=== PATIENT | male | born 1940 | race American Indian/Alaskan Native ===

== ENCOUNTER 2016-09-02 15:02 | Emergency (ER) | payer MEDICARE ==
[2016-09-02 15:35] VITALS: BP 119/74
[2016-09-02 15:48] LABS: Hematocrit 49.8 % (35.5-45.6); Hemoglobin 17.1 gm/dl (11.8-15.2); Mean Corpuscular HGB Conc 34 % (32-34); Mean Corpuscular Hemoglobin 31 pg (28-32); Mean Corpuscular Volume 90 fl (84-94); Platelet Count 218 K/mm3 (140-440); Red Blood Count 5.53 M/mm3 (3.65-5.03); Red Cell Distribution Width 14.4 % (13.2-15.2); White Blood Count 3.8 K/mm3 (4.5-11.0)
[2016-09-02 15:57] LABS: INR 1.54 (0.87-1.13)
[2016-09-02 16:09] LABS: Anion Gap 20 mmol/L; BUN/Creatinine Ratio 21.05; Blood Urea Nitrogen 40 mg/dL (9-20); Calcium 9.1 mg/dL (8.4-10.2); Carbon Dioxide 24 mmol/L (22-30); Chloride 94.1 mmol/L (98-107); Glucose 123 mg/dL (75-100); Potassium 3.7 mmol/L (3.6-5.0); Sodium 134 mmol/L (137-145)
--- NOTE | 2016-09-02 16:25 | Cat Scan Report ---
FINAL REPORT EXAM: CT HEAD/BRAIN WO CON HISTORY: neuro deficits \T\lt; 6hrs or sx present upon awakening TECHNIQUE: CT head without contrast PRIORS: None. FINDINGS: No acute intra-axial or extra-axial hemorrhage is identified. There is no evidence of midline shift or mass effect. The ventricles and sulci are within normal limits. Gunderson-white matter differentiation is intact. No acute parenchymal abnormalities seen. Bony calvarium is grossly intact. Visualized portions of the mastoids and paranasal sinuses are unremarkable. IMPRESSION: Negative CT head
[2016-09-02 19:35] LABS: Blastocytes % (Manual) 0 %
[2016-09-02 19:38] LABS: Anisocytosis 1+; Ovalocytes 1+
[2016-09-02 19:39] LABS: Diff Status Complete; Large Platelets 1+; Platelet Estimate Cons
--- NOTE | 2016-09-06 15:59 | ED Elopement Review ---
ED Pt Elopement review - Results review Lab results: Laboratory Tests 09/02/16 09/02/16 09/02/16 15:38 15:38 15:38 WBC 3.8 L RBC 5.53 H Hgb 17.1 H Hct 49.8 H MCV 90 MCH 31 MCHC 34 RDW 14.4 Plt Count 218 [place] % (Auto) Cereal Chemist Add Manual Diff Complete Total Counted 100 Seg Neuts % (Manual) 47.0 Band Neutrophils % 0 Lymphocytes % (Manual) 31.0 Reactive Lymphs % (Man) 0 Monocytes % (Manual) 20.0 H Eosinophils % (Manual) 1.0 Basophils % (Manual) 1.0 Metamyelocytes % 0 Myelocytes % 0 Promyelocytes % 0 Blast Cells % 0 Nucleated RBC % Not Reportable Seg Neutrophils # Man 1.8 Band Neutrophils # 0.0 Lymphocytes # (Manual) 1.2 Abs React Lymphs (Man) 0.0 Monocytes # (Manual) 0.8 Eosinophils # (Manual) 0.0 Basophils # (Manual) 0.0 Metamyelocytes # 0.0 Myelocytes # 0.0 Promyelocytes # 0.0 Blast Cells # 0.0 WBC Morphology Not Reportable Hypersegmented Neuts Not Reportable Hyposegmented Neuts Not Reportable Hypogranular Neuts Not Reportable Smudge Cells Not Reportable Toxic Granulation Not Reportable Toxic Vacuolation Not Reportable Dohle Bodies Not Reportable Pelger-Huet Anomaly Not Reportable Marielle Rods Not Reportable Platelet Estimate Cons Clumped Platelets Not Reportable Plt Clumps, EDTA Not Reportable Large Platelets 1+ Giant Platelets Not Reportable Platelet Satelliting Not Reportable Plt Morphology Comment Not Reportable RBC Morphology Not Reportable Dimorphic RBCs Not Reportable Polychromasia Not Reportable Hypochromasia Not Reportable Poikilocytosis Not Reportable Anisocytosis 1+ Microcytosis Not Reportable Macrocytosis Not Reportable Spherocytes Not Reportable Pappenheimer Bodies Not Reportable Sickle Cells Not Reportable Target Cells Not Reportable Tear Drop Cells Not Reportable Ovalocytes 1+ Helmet Cells Not Reportable Riddle-[place] Bodies Not Reportable Mobile Rings Not Reportable Duglas Cells Not Reportable Bite Cells Not Reportable Crenated Cell Not Reportable Elliptocytes Not Reportable Acanthocytes (Spur) Not Reportable Rouleaux Not Reportable Hemoglobin C Crystals Not Reportable Schistocytes Not Reportable Malaria parasites Not Reportable Timbo Bodies Not Reportable Hem Pathologist Commnt No PT 18.5 H INR 1.54 H APTT 36.0 Thrombin Time Sodium 134 L Potassium 3.7 Chloride 94.1 L Carbon Dioxide 24 Anion Gap 20 BUN 40 H Creatinine 1.9 H Estimated GFR 42 BUN/Creatinine Ratio 21.05 Glucose 123 H POC Glucose Calcium 9.1 Troponin T < 0.010 09/02/16 09/02/16 15:38 15:41 WBC RBC Hgb Hct MCV MCH MCHC RDW Plt Count [place] % (Auto) Add Manual Diff Total Counted Seg Neuts % (Manual) Band Neutrophils % Lymphocytes % (Manual) Reactive Lymphs % (Man) Monocytes % (Manual) Eosinophils % (Manual) Basophils % (Manual) Metamyelocytes % Myelocytes % Promyelocytes % Blast Cells % Nucleated RBC % Seg Neutrophils # Man Band Neutrophils # Lymphocytes # (Manual) Abs React Lymphs (Man) Monocytes # (Manual) Eosinophils # (Manual) Basophils # (Manual) Metamyelocytes # Myelocytes # Promyelocytes # Blast Cells # WBC Morphology Hypersegmented Neuts Hyposegmented Neuts Hypogranular Neuts Smudge Cells Toxic Granulation Toxic Vacuolation Dohle Bodies Pelger-Huet Anomaly Marielle Rods Platelet Estimate Clumped Platelets Plt Clumps, EDTA Large Platelets Giant Platelets Platelet Satelliting Plt Morphology Comment RBC Morphology Dimorphic RBCs Polychromasia Hypochromasia Poikilocytosis Anisocytosis Microcytosis Macrocytosis Spherocytes Pappenheimer Bodies Sickle Cells Target Cells Tear Drop Cells Ovalocytes Helmet Cells Riddle-[place] Bodies Mobile Rings Duglas Cells Bite Cells Crenated Cell Elliptocytes Acanthocytes (Spur) Rouleaux Hemoglobin C Crystals Schistocytes Malaria parasites Timbo Bodies Hem Pathologist Commnt PT INR APTT Thrombin Time 16.9 Sodium Potassium Chloride Carbon Dioxide Anion Gap BUN Creatinine Estimated GFR BUN/Creatinine Ratio Glucose POC Glucose 122 H Calcium Troponin T - Call Back decision Pt Call Back Decision: No action required
== END 2016-09-02 15:38 | disposition left against medical advice (07) ==
LOC: ED 15:02
DX: R51 Headache (principal); R03.1 Nonspecific low blood-pressure reading; I10 Essential (primary) hypertension; I50.9 Heart failure, unspecified; Z86.718 Personal history of other venous thrombosis and embolism; Z53.21 Procedure and treatment not carried out due to patient leaving prior to being seen by health care provider
CPT/HCPCS: 36415; 70450; 80048; 82962; 84484; 85007; 85025; 85610; 85670; 85730; 93005; 93010

== ENCOUNTER 2016-10-12 14:49 | Inpatient (IN) | payer MEDICARE ==
--- NOTE | 2016-10-12 15:41 | Emergency Department Report ---
ED Altered Mental Status HPI - General Chief Complaint: Altered Mental Status Stated Complaint: LEG PAIN Time Seen by Provider: 10/12/16 15:37 Source: patient, family, RN notes reviewed Mode of arrival: Ambulatory Limitations: Altered Mental Status, Physical Limitation - History of Present Illness Initial Comments: 76-year-old male presents to the emergency department via EMS for evaluation of altered mental status. Additional history is obtained from the patient's daughter at bedside. Per report, the patient has been more lethargic over the past day. She states that he has been unable to get up and walk. Patient states when he tries to stand up his right leg hurts. Daughter states that the patient has some difficulty with swelling in his legs, but they are slightly more swollen than normal. Patient denies pain in his chest or difficulty breathing. There are no other complaints. MD Complaint: altered mental status -: Gradual, days(s) (1) Severity: moderate Consistency of Symptoms: constant Context: unknown Associated Symptoms: difficulty walking - Related Data Home Medications Medication Instructions Recorded Confirmed Last Taken Finasteride 5 mg PO DAILY 09/12/13 10/12/16 10/12/16 Metoprolol [Lopressor TAB] 100 mg PO QAM 09/12/13 10/12/16 1 Day Ago Warfarin [Coumadin] 5 mg PO 4XW 09/12/13 10/12/16 10/12/16 cloNIDine [Catapres] 0.2 mg PO BID 09/12/13 10/12/16 10/12/16 Metoprolol [Lopressor TAB] 50 mg PO HS 09/13/13 10/12/16 1 Day Ago Sildenafil [Revatio] 20 mg PO TID 07/01/15 10/12/16 10/12/16 Allopurinol [Zyloprim] 100 mg PO BID 10/12/16 10/12/16 Unknown Bumetanide [Bumex 1 mg tab] 1 mg PO ONCE 10/12/16 10/12/16 10/12/16 Calcium Citrate/Vitamin D3 [Gnp 1 tab PO 1XW 10/12/16 10/12/16 Unknown Calcium Citrate-Vit D3 Tab] Gabapentin [Neurontin] 300 mg PO BID 10/12/16 10/12/16 10/12/16 Potassium Chloride [Klor-Con 8] 8 meq PO DAILY 10/12/16 10/12/16 Unknown Vital-D Rx Tablet 1 tab PO 1XW 10/12/16 10/12/16 1 Day Ago Warfarin [Coumadin] 7.5 mg PO 2XW 10/12/16 10/12/16 10/12/16 Allergies Allergy/AdvReac Type Severity Reaction Status Date / Time No Known Allergies Allergy Verified 09/02/16 15:29 ED Review of Systems ROS: Stated complaint: LEG PAIN Other details as noted in HPI Comment: All other systems reviewed and negative Constitutional: weakness Cardiovascular: edema Musculoskeletal: other (leg pain) ED Past Medical Hx - Past Medical History Previous Medical History?: Yes Hx Hypertension: Yes Hx Heart Attack/AMI: No Hx Congestive Heart Failure: Yes Hx Diabetes: No Hx Deep Vein Thrombosis: Yes Hx Pulmonary Embolism: Yes Hx GERD: No Hx Liver Disease: No Hx Renal Disease: No Hx Sickle Cell Disease: No Hx Arthritis: No Hx Headaches / Migraines: No Hx Seizures: No Hx Kidney Stones: No Hx Asthma: No Hx COPD: No Hx Tuberculosis: No Hx Dementia: No Hx HIV: No - Surgical History Past Surgical History?: No Hx Coronary Stent: No Hx Open Heart Surgery: No Hx Pacemaker: No Hx Internal Defibrillator: No Hx Cholecystectomy: No Hx Appendectomy: No Hx Breast Surgery: No - Family History Family history: no significant - Social History Smoking Status: Unknown if ever smoked Substance Use Type: None - Medications Home Medications: Home Medications Medication Instructions Recorded Confirmed Last Taken Type Finasteride 5 mg PO DAILY 09/12/13 10/12/16 10/12/16 History Metoprolol [Lopressor TAB] 100 mg PO QAM 09/12/13 10/12/16 1 Day Ago History Warfarin [Coumadin] 5 mg PO 4XW 09/12/13 10/12/16 10/12/16 History cloNIDine [Catapres] 0.2 mg PO BID 09/12/13 10/12/16 10/12/16 History Metoprolol [Lopressor TAB] 50 mg PO HS 09/13/13 10/12/16 1 Day Ago History Sildenafil [Revatio] 20 mg PO TID 07/01/15 10/12/16 10/12/16 History Allopurinol [Zyloprim] 100 mg PO BID 10/12/16 10/12/16 Unknown History Bumetanide [Bumex 1 mg tab] 1 mg PO ONCE 10/12/16 10/12/16 10/12/16 History Calcium Citrate/Vitamin D3 [Gnp 1 tab PO 1XW 10/12/16 10/12/16 Unknown History Calcium Citrate-Vit D3 Tab] Gabapentin [Neurontin] 300 mg PO BID 10/12/16 10/12/16 10/12/16 History Potassium Chloride [Klor-Con 8] 8 meq PO DAILY 10/12/16 10/12/16 Unknown History Vital-D Rx Tablet 1 tab PO 1XW 10/12/16 10/12/16 1 Day Ago History Warfarin [Coumadin] 7.5 mg PO 2XW 10/12/16 10/12/16 10/12/16 History ED Physical Exam - General Limitations: Altered Mental Status, Physical Limitation General appearance: in no apparent distress, lethargic - Head Head exam: Present: atraumatic, normocephalic - Eye Eye exam: Present: normal appearance, PERRL, EOMI - ENT ENT exam: Present: normal exam, normal orophraynx, mucous membranes moist - Neck Neck exam: Present: normal inspection, full ROM. Absent: tenderness - Respiratory Respiratory exam: Present: normal lung sounds bilaterally. Absent: respiratory distress - Cardiovascular Cardiovascular Exam: Present: regular rate, normal rhythm, normal heart sounds - GI/Abdominal GI/Abdominal exam: Present: soft, normal bowel sounds. Absent: distended, tenderness - Extremities Exam Extremities exam: Present: normal inspection, full ROM, pedal edema (one plus edema bilateral lower extremities, right greater than left). Absent: tenderness - Back Exam Back exam: Present: normal inspection, full ROM. Absent: tenderness - Neurological Exam Neurological exam: Present: oriented X3, other (patient is arousable and is able to answer questions appropriately.). Absent: motor sensory deficit - Skin Skin exam: Present: warm, dry, intact ED Course Vital Signs 10/12/16 10/12/16 10/12/16 14:51 15:00 15:11 Temperature Pulse Rate 102 H 95 H 93 H Respiratory 22 17 19 Rate Blood Pressure 108/71 108/71 Blood Pressure [Left] O2 Sat by Pulse 97 98 Oximetry 10/12/16 10/12/16 15:15 16:30 Temperature 98.6 F 100.8 F H Pulse Rate 94 H Respiratory 22 Rate Blood Pressure Blood Pressure 118/73 [Left] O2 Sat by Pulse 80 L 99 Oximetry - Lab Data Result diagrams: 10/12/16 15:40 10/12/16 15:40 Lab Results 10/12/16 10/12/16 10/12/16 Range/Units 15:40 15:40 15:40 WBC 8.3 (4.5-11.0) K/mm3 RBC 5.27 H (3.65-5.03) M/mm3 Hgb 16.1 H (11.8-15.2) gm/dl Hct 48.2 H (35.5-45.6) % MCV 91 (84-94) fl MCH 31 (28-32) pg MCHC 33 (32-34) % RDW 14.9 (13.2-15.2) % Plt Count 186 (140-440) K/mm3 Lymph % (Auto) 7.3 L (13.4-35.0) % Page % (Auto) 14.8 H (0.0-7.3) % Eos % (Auto) 0.1 (0.0-4.3) % Baso % (Auto) 0.3 (0.0-1.8) % Lymph # 0.6 L (1.2-5.4) K/mm3 Page # 1.2 H (0.0-0.8) K/mm3 Eos # 0.0 (0.0-0.4) K/mm3 Baso # 0.0 (0.0-0.1) K/mm3 Seg Neutrophils % 77.5 H (40.0-70.0) % Seg Neutrophils # 6.5 (1.8-7.7) K/mm3 PT (12.2-14.9) Sec. INR (0.87-1.13) APTT (24.2-36.6) Sec. Sodium 137 (137-145) mmol/L Potassium 3.5 L (3.6-5.0) mmol/L Chloride 93.2 L (98-107) mmol/L Carbon Dioxide 31 H (22-30) mmol/L Anion Gap 16 mmol/L BUN 40 H (9-20) mg/dL Creatinine 2.0 H (0.8-1.5) mg/dL Estimated GFR 40 ml/min BUN/Creatinine Ratio 20.00 % Glucose 109 H (75-100) mg/dL Lactic Acid 2.30 H* (0.7-2.0) mmol/L Calcium 9.0 (8.4-10.2) mg/dL Magnesium 2.00 (1.7-2.3) mg/dL Total Bilirubin 1.00 (0.1-1.2) mg/dL AST 54 H (5-40) units/L ALT 26 (7-56) units/L Alkaline Phosphatase 57 (35-129) units/L NT-Pro-B Natriuret Pep (0-900) pg/mL Total Protein 7.3 (6.3-8.2) g/dL Albumin 3.3 L (3.9-5) g/dL Albumin/Globulin Ratio 0.8 % TSH (0.270-4.200) mlU/mL Urine Color (Yellow) Urine Turbidity (Clear) Urine pH (5.0-7.0) Ur Specific [place] (1.003-1.030) Urine Protein (Negative) mg/dL Urine Glucose (UA) (Negative) mg/dL Urine Ketones (Negative) mg/dL Urine Blood (Negative) Urine Nitrite (Negative) Urine Bilirubin (Negative) Urine Urobilinogen (<2.0) mg/dL Ur Leukocyte Esterase (Negative) Urine WBC (Auto) (0.0-6.0) /HPF Urine RBC (Auto) (0.0-6.0) /HPF Urine Bacteria (Auto) (Negative) /HPF Urine Mucus /HPF Salicylates (2.8-20.0) mg/dL Urine Opiates Screen Urine Methadone Screen Acetaminophen (10.0-30.0) ug/mL Ur Barbiturates Screen Ur Phencyclidine Scrn Ur Amphetamines Screen U Benzodiazepines Scrn Urine Cocaine Screen U Marijuana (THC) Screen Plasma/Serum Alcohol (0-0.07) gm% 10/12/16 10/12/16 10/12/16 Range/Units 15:40 15:40 15:40 WBC (4.5-11.0) K/mm3 RBC (3.65-5.03) M/mm3 Hgb (11.8-15.2) gm/dl Hct (35.5-45.6) % MCV (84-94) fl MCH (28-32) pg MCHC (32-34) % RDW (13.2-15.2) % Plt Count (140-440) K/mm3 Lymph % (Auto) (13.4-35.0) % Page % (Auto) (0.0-7.3) % Eos % (Auto) (0.0-4.3) % Baso % (Auto) (0.0-1.8) % Lymph # (1.2-5.4) K/mm3 Page # (0.0-0.8) K/mm3 Eos # (0.0-0.4) K/mm3 Baso # (0.0-0.1) K/mm3 Seg Neutrophils % (40.0-70.0) % Seg Neutrophils # (1.8-7.7) K/mm3 PT (12.2-14.9) Sec. INR (0.87-1.13) APTT (24.2-36.6) Sec. Sodium (137-145) mmol/L Potassium (3.6-5.0) mmol/L Chloride (98-107) mmol/L Carbon Dioxide (22-30) mmol/L Anion Gap mmol/L BUN (9-20) mg/dL Creatinine (0.8-1.5) mg/dL Estimated GFR ml/min BUN/Creatinine Ratio % Glucose (75-100) mg/dL Lactic Acid (0.7-2.0) mmol/L Calcium (8.4-10.2) mg/dL Magnesium (1.7-2.3) mg/dL Total Bilirubin (0.1-1.2) mg/dL AST (5-40) units/L ALT (7-56) units/L Alkaline Phosphatase (35-129) units/L NT-Pro-B Natriuret Pep (0-900) pg/mL Total Protein (6.3-8.2) g/dL Albumin (3.9-5) g/dL Albumin/Globulin Ratio % TSH 1.630 (0.270-4.200) mlU/mL Urine Color (Yellow) Urine Turbidity (Clear) Urine pH (5.0-7.0) Ur Specific [place] (1.003-1.030) Urine Protein (Negative) mg/dL Urine Glucose (UA) (Negative) mg/dL Urine Ketones (Negative) mg/dL Urine Blood (Negative) Urine Nitrite (Negative) Urine Bilirubin (Negative) Urine Urobilinogen (<2.0) mg/dL Ur Leukocyte Esterase (Negative) Urine WBC (Auto) (0.0-6.0) /HPF Urine RBC (Auto) (0.0-6.0) /HPF Urine Bacteria (Auto) (Negative) /HPF Urine Mucus /HPF Salicylates < 0.3 L (2.8-20.0) mg/dL Urine Opiates Screen Urine Methadone Screen Acetaminophen < 15.0 (10.0-30.0) ug/mL Ur Barbiturates Screen Ur Phencyclidine Scrn Ur Amphetamines Screen U Benzodiazepines Scrn Urine Cocaine Screen U Marijuana (THC) Screen Plasma/Serum Alcohol (0-0.07) gm% 10/12/16 10/12/16 10/12/16 Range/Units 15:40 15:40 15:40 WBC (4.5-11.0) K/mm3 RBC (3.65-5.03) M/mm3 Hgb (11.8-15.2) gm/dl Hct (35.5-45.6) % MCV (84-94) fl MCH (28-32) pg MCHC (32-34) % RDW (13.2-15.2) % Plt Count (140-440) K/mm3 Lymph % (Auto) (13.4-35.0) % Page % (Auto) (0.0-7.3) % Eos % (Auto) (0.0-4.3) % Baso % (Auto) (0.0-1.8) % Lymph # (1.2-5.4) K/mm3 Page # (0.0-0.8) K/mm3 Eos # (0.0-0.4) K/mm3 Baso # (0.0-0.1) K/mm3 Seg Neutrophils % (40.0-70.0) % Seg Neutrophils # (1.8-7.7) K/mm3 PT 20.3 H (12.2-14.9) Sec. INR 1.64 H (0.87-1.13) APTT 38.2 H (24.2-36.6) Sec. Sodium (137-145) mmol/L Potassium (3.6-5.0) mmol/L Chloride (98-107) mmol/L Carbon Dioxide (22-30) mmol/L Anion Gap mmol/L BUN (9-20) mg/dL Creatinine (0.8-1.5) mg/dL Estimated GFR ml/min BUN/Creatinine Ratio % Glucose (75-100) mg/dL Lactic Acid (0.7-2.0) mmol/L Calcium (8.4-10.2) mg/dL Magnesium (1.7-2.3) mg/dL Total Bilirubin (0.1-1.2) mg/dL AST (5-40) units/L ALT (7-56) units/L Alkaline Phosphatase (35-129) units/L NT-Pro-B Natriuret Pep 2820 H (0-900) pg/mL Total Protein (6.3-8.2) g/dL Albumin (3.9-5) g/dL Albumin/Globulin Ratio % TSH (0.270-4.200) mlU/mL Urine Color (Yellow) Urine Turbidity (Clear) Urine pH (5.0-7.0) Ur Specific [place] (1.003-1.030) Urine Protein (Negative) mg/dL Urine Glucose (UA) (Negative) mg/dL Urine Ketones (Negative) mg/dL Urine Blood (Negative) Urine Nitrite (Negative) Urine Bilirubin (Negative) Urine Urobilinogen (<2.0) mg/dL Ur Leukocyte Esterase (Negative) Urine WBC (Auto) (0.0-6.0) /HPF Urine RBC (Auto) (0.0-6.0) /HPF Urine Bacteria (Auto) (Negative) /HPF Urine Mucus /HPF Salicylates (2.8-20.0) mg/dL Urine Opiates Screen Urine Methadone Screen Acetaminophen (10.0-30.0) ug/mL Ur Barbiturates Screen Ur Phencyclidine Scrn Ur Amphetamines Screen U Benzodiazepines Scrn Urine Cocaine Screen U Marijuana (THC) Screen Plasma/Serum Alcohol < 0.01 (0-0.07) gm% 10/12/16 10/12/16 Range/Units 16:30 16:30 WBC (4.5-11.0) K/mm3 RBC (3.65-5.03) M/mm3 Hgb (11.8-15.2) gm/dl Hct (35.5-45.6) % MCV (84-94) fl MCH (28-32) pg MCHC (32-34) % RDW (13.2-15.2) % Plt Count (140-440) K/mm3 Lymph % (Auto) (13.4-35.0) % Page % (Auto) (0.0-7.3) % Eos % (Auto) (0.0-4.3) % Baso % (Auto) (0.0-1.8) % Lymph # (1.2-5.4) K/mm3 Page # (0.0-0.8) K/mm3 Eos # (0.0-0.4) K/mm3 Baso # (0.0-0.1) K/mm3 Seg Neutrophils % (40.0-70.0) % Seg Neutrophils # (1.8-7.7) K/mm3 PT (12.2-14.9) Sec. INR (0.87-1.13) APTT (24.2-36.6) Sec. Sodium (137-145) mmol/L Potassium (3.6-5.0) mmol/L Chloride (98-107) mmol/L Carbon Dioxide (22-30) mmol/L Anion Gap mmol/L BUN (9-20) mg/dL Creatinine (0.8-1.5) mg/dL Estimated GFR ml/min BUN/Creatinine Ratio % Glucose (75-100) mg/dL Lactic Acid (0.7-2.0) mmol/L Calcium (8.4-10.2) mg/dL Magnesium (1.7-2.3) mg/dL Total Bilirubin (0.1-1.2) mg/dL AST (5-40) units/L ALT (7-56) units/L Alkaline Phosphatase (35-129) units/L NT-Pro-B Natriuret Pep (0-900) pg/mL Total Protein (6.3-8.2) g/dL Albumin (3.9-5) g/dL Albumin/Globulin Ratio % TSH (0.270-4.200) mlU/mL Urine Color Yellow (Yellow) Urine Turbidity Clear (Clear) Urine pH 6.0 (5.0-7.0) Ur Specific [place] 1.008 (1.003-1.030) Urine Protein <15 mg/dl (Negative) mg/dL Urine Glucose (UA) Neg (Negative) mg/dL Urine Ketones Neg (Negative) mg/dL Urine Blood Sm (Negative) Urine Nitrite Neg (Negative) Urine Bilirubin Neg (Negative) Urine Urobilinogen < 2.0 (<2.0) mg/dL Ur Leukocyte Esterase Neg (Negative) Urine WBC (Auto) 0.0 (0.0-6.0) /HPF Urine RBC (Auto) 2.0 (0.0-6.0) /HPF Urine Bacteria (Auto) 1+ (Negative) /HPF Urine Mucus Few /HPF Salicylates (2.8-20.0) mg/dL Urine Opiates Screen Presumptive negative Urine Methadone Screen Presumptive negative Acetaminophen (10.0-30.0) ug/mL Ur Barbiturates Screen Presumptive negative Ur Phencyclidine Scrn Presumptive negative Ur Amphetamines Screen Presumptive negative U Benzodiazepines Scrn Presumptive negative Urine Cocaine Screen Presumptive negative U Marijuana (THC) Screen Presumptive negative Plasma/Serum Alcohol (0-0.07) gm% - Radiology Data Radiology results: image reviewed interpreted by me: Chest x-ray shows changes consistent with congestive heart failure. - Medical Decision Making Patient was initially hypoxic with room air saturation of 80%. He was placed on a nonrebreather with resultant oxygen saturation of 100%. Will titrate oxygen down as tolerated. Obtaining labs. We'll continue to monitor. 1700--lab and imaging results reviewed and discussed with the family. Informed by nursing that the patient has a new rectal temp of 100.8. Attempt to wean the patient off of a nonrebreather been unsuccessful. There is no objective source of infection at this time. Blood cultures have been ordered. Additional IV fluids are being held at this time due to the patient's exacerbation of his congestive heart failure. Patient is to be admitted by the hospitalist. - Differential Diagnosis occult infection, CHF, renal failure Critical care attestation.: If time is entered above; I have spent that time in minutes in the direct care of this critically ill patient, excluding procedure time. ED Disposition Clinical Impression: Acute respiratory failure with hypoxia, Elevated lactic acid level CHF exacerbation Qualifiers: Congestive heart failure type: unspecified congestive heart failure type Qualified Code(s): I50.9 - Heart failure, unspecified Disposition: OP ADMIT IP TO THIS HOSP Is pt being admited?: Yes Condition: Stable Referrals: PRIMARY CARE, [Primary Care Provider] - 3-5 Days Time of Disposition: 17:10
[2016-10-12 16:19] LABS: Albumin 3.3 g/dL (3.9-5); Albumin/Globulin Ratio 0.8 %; Chloride 93.2 mmol/L (98-107); Potassium 3.5 mmol/L (3.6-5.0); Total Protein 7.3 g/dL (6.3-8.2)
[2016-10-12 16:25] LABS: Basophils % (Auto) 0.3 % (0.0-1.8); Eosinophils % (Auto) 0.1 % (0.0-4.3); Hematocrit 48.2 % (35.5-45.6); Hemoglobin 16.1 gm/dl (11.8-15.2); Mean Corpuscular HGB Conc 33 % (32-34); Mean Corpuscular Hemoglobin 31 pg (28-32); Mean Corpuscular Volume 91 fl (84-94); Platelet Count 186 K/mm3 (140-440); Red Blood Count 5.27 M/mm3 (3.65-5.03); Red Cell Distribution Width 14.9 % (13.2-15.2); White Blood Count 8.3 K/mm3 (4.5-11.0)
[2016-10-12 16:33] LABS: INR 1.64 (0.87-1.13)
[2016-10-12 16:34] LABS: Partial Thromboplastin Time 38.2 Sec. (24.2-36.6)
[2016-10-12 16:49] LABS: Urine Drugs of Abuse Note Disclamer
--- NOTE | 2016-10-12 16:57 | History and Physical Report ---
History of Present Illness Chief complaint: weakness, confusion History of present illness: 76 YO Male with CHF Diastolic Dysfunction, Dementia, HTN, DVT/PE on Anticoagulation, Pulmonary Hypertension, presents to ED for evaluation. Pt unable to provide detailed history. Pt history taken from family members who are at bedside during exam and interview. Pt family states that patient has become increasingly weak and confused over the past week with worsening symptoms over the past day. Pt is currently unable to conduct ADL's without maximum assistance. Pt family acknowledge subjective fever and leg swelling, but deny chills, CP, Palpitations, NVD, Syncope, Fall, Trauma, BRBPR, recent ill contacts, productive cough. Pt acknowledges right leg pain with standing. Past History Past Medical History: DVT, heart failure, hypertension, pulmonary embolism, other (pulmonary HTN) Past Surgical History: No surgical history, Other (reviewed) Social history: single, lives with family. denies: smoking, alcohol abuse, prescription drug abuse, IV drug use Family history: hypertension Medications and Allergies Allergies Allergy/AdvReac Type Severity Reaction Status Date / Time No Known Allergies Allergy Verified 09/02/16 15:29 Home Medications Medication Instructions Recorded Confirmed Last Taken Type Finasteride 5 mg PO DAILY 09/12/13 10/12/16 10/12/16 History Metoprolol [Lopressor TAB] 100 mg PO QAM 09/12/13 10/12/16 1 Day Ago History Warfarin [Coumadin] 5 mg PO 4XW 09/12/13 10/12/16 10/12/16 History cloNIDine [Catapres] 0.2 mg PO BID 09/12/13 10/12/16 10/12/16 History Metoprolol [Lopressor TAB] 50 mg PO HS 09/13/13 10/12/16 1 Day Ago History Sildenafil [Revatio] 20 mg PO TID 07/01/15 10/12/16 10/12/16 History Allopurinol [Zyloprim] 100 mg PO BID 10/12/16 10/12/16 Unknown History Bumetanide [Bumex 1 mg tab] 1 mg PO ONCE 10/12/16 10/12/16 10/12/16 History Calcium Citrate/Vitamin D3 [Gnp 1 tab PO 1XW 10/12/16 10/12/16 Unknown History Calcium Citrate-Vit D3 Tab] Gabapentin [Neurontin] 300 mg PO BID 10/12/16 10/12/16 10/12/16 History Potassium Chloride [Klor-Con 8] 8 meq PO DAILY 10/12/16 10/12/16 Unknown History Vital-D Rx Tablet 1 tab PO 1XW 10/12/16 10/12/16 1 Day Ago History Warfarin [Coumadin] 7.5 mg PO 2XW 10/12/16 10/12/16 10/12/16 History Review of Systems ROS unobtainable: due to mental status Exam - Constitutional Vitals: Temp Pulse Resp BP Pulse Ox 100.8 F H 94 H 22 118/73 99 10/12/16 16:30 10/12/16 16:30 10/12/16 16:30 10/12/16 16:30 10/12/16 16:30 General appearance: Present: mild distress - EENT Eyes: Present: PERRL ENT: hearing intact, clear oral mucosa - Neck Neck: Present: supple, normal ROM - Respiratory Respiratory effort: labored Respiratory: bilateral: diminished, rhonchi - Cardiovascular Heart Sounds: Present: S1 & S2. Absent: rub, click - Extremities Extremities: pulses symmetrical, No edema Extremity abnormal: edema Peripheral Pulses: within normal limits - Abdominal General gastrointestinal: Present: soft, non-tender, non-distended, normal bowel sounds Male genitourinary: Present: normal - Integumentary Integumentary: Present: clear, dry, decreased turgor - Musculoskeletal Musculoskeletal: generalized weakness - Psychiatric Psychiatric: no intact judgment & insight, no memory intact - Neurologic Neurologic: CNII-XII intact, moves all extremities, no gait normal Results - Labs CBC & Chem 7: 10/12/16 15:40 10/12/16 15:40 Labs: Abnormal lab results 10/12/16 10/12/16 10/12/16 Range/Units 15:40 15:40 15:40 RBC 5.27 H (3.65-5.03) M/mm3 Hgb 16.1 H (11.8-15.2) gm/dl Hct 48.2 H (35.5-45.6) % Lymph % (Auto) 7.3 L (13.4-35.0) % [place] % (Auto) 14.8 H (0.0-7.3) % Lymph # 0.6 L (1.2-5.4) K/mm3 [place] # 1.2 H (0.0-0.8) K/mm3 Seg Neutrophils % 77.5 H (40.0-70.0) % PT (12.2-14.9) Sec. INR (0.87-1.13) APTT (24.2-36.6) Sec. Potassium 3.5 L (3.6-5.0) mmol/L Chloride 93.2 L (98-107) mmol/L Carbon Dioxide 31 H (22-30) mmol/L BUN 40 H (9-20) mg/dL Creatinine 2.0 H (0.8-1.5) mg/dL Glucose 109 H (75-100) mg/dL Lactic Acid 2.30 H* (0.7-2.0) mmol/L AST 54 H (5-40) units/L NT-Pro-B Natriuret Pep (0-900) pg/mL Albumin 3.3 L (3.9-5) g/dL Salicylates (2.8-20.0) mg/dL 10/12/16 10/12/16 10/12/16 Range/Units 15:40 15:40 15:40 RBC (3.65-5.03) M/mm3 Hgb (11.8-15.2) gm/dl Hct (35.5-45.6) % Lymph % (Auto) (13.4-35.0) % [place] % (Auto) (0.0-7.3) % Lymph # (1.2-5.4) K/mm3 [place] # (0.0-0.8) K/mm3 Seg Neutrophils % (40.0-70.0) % PT 20.3 H (12.2-14.9) Sec. INR 1.64 H (0.87-1.13) APTT 38.2 H (24.2-36.6) Sec. Potassium (3.6-5.0) mmol/L Chloride (98-107) mmol/L Carbon Dioxide (22-30) mmol/L BUN (9-20) mg/dL Creatinine (0.8-1.5) mg/dL Glucose (75-100) mg/dL Lactic Acid (0.7-2.0) mmol/L AST (5-40) units/L NT-Pro-B Natriuret Pep 2820 H (0-900) pg/mL Albumin (3.9-5) g/dL Salicylates < 0.3 L (2.8-20.0) mg/dL Assessment and Plan - Patient Problems (1) Sepsis Current Visit: Yes Status: Acute Qualifiers: Sepsis type: S Plan to address problem: Sepsis protocol: IV abx, Ivf, supportive care, serial lactate, monitor uop q shift, blood cultures, (2) ARF (acute renal failure) Current Visit: Yes Status: Acute Qualifiers: Acute renal failure type: A Plan to address problem: monitor uop q shift, repeat bmp (3) Acute respiratory failure with hypoxia Current Visit: Yes Status: Acute Plan to address problem: supplemental oxygen, nebs, aspiration precautions, ABG, NIPPV as clinically indicated (4) CHF exacerbation Current Visit: Yes Status: Acute Qualifiers: Congestive heart failure type: unspecified congestive heart failure type Qualified Code(s): I50.9 - Heart failure, unspecified Plan to address problem: CHF protocol: admit to telemetry, fluid restriction, monitor uop q shift, diuretics, afterload reduction, supportive care, (5) Toxic encephalopathy Current Visit: Yes Status: Acute Plan to address problem: Treat sepsis, IVF, supportive care, (6) DVT prophylaxis Current Visit: No Status: Acute
[2016-10-12 17:01] LABS: Bacteria,Urine 1+ /HPF (Negative); Bilirubin,Urine NEG (Negative); Blood,Urine SM (Negative); Ketones,Urine NEG (Negative); Leukocyte Esterase,Urine NEG (Negative); Mucus,Urine FEW /HPF; Nitrite,Urine NEG (Negative); Protein,Urine <15 mg/dL mg/dL (Negative); Urobilinogen,Urine < 2.0 mg/dL (<2.0)
[2016-10-12] MEDS ORDERED: VANCOMYCIN VIAL IV ONE (17:24)
[2016-10-12] MEDS ORDERED: TYLENOL PO PRN (17:24)
[2016-10-12] MEDS ORDERED: ZOFRAN IV PRN (17:24)
[2016-10-12] MEDS ORDERED: NACL 0.9% 1000 ML IV ONE (17:24)
[2016-10-12] MEDS ORDERED: DUONEB *Not for PRN Use IH (17:24)
[2016-10-12] MEDS ORDERED: PROVENTIL IH PRN (17:47)
[2016-10-12] MEDS ORDERED: VANCOMYCIN 1,750 MG in NACL 0.9% 500 ML 500 ML IV ONE (18:00)
[2016-10-12] MEDS ORDERED: VANCOMYCIN PHARMACY TO DOSE IV SCH (18:00)
[2016-10-12] MEDS ORDERED: NACL 0.9% 1000 ML 1,000 ML IV SCH (22:00)
[2016-10-12] MEDS: LOVENOX SUB-Q SCH (22:02)
[2016-10-12] MEDS: LASIX IV SCH (22:03)
[2016-10-12] MEDS: ZOSYN/NS 4.5GM/100ML 4.5 GM/100 ML VIAL IV SCH (22:04)
[2016-10-13] MEDS: ZOSYN/NS 4.5GM/100ML 4.5 GM/100 ML VIAL IV SCH (05:20)
[2016-10-13] MEDS: LASIX IV SCH ×2 (05:20→18:19)
--- NOTE | 2016-10-13 09:36 | XRay Report ---
AP CHEST :10/12/16 17:05 CLINICAL: Shortness of breath. COMPARISON:07/01/15 FINDINGS: The heart is normal size. Large central pulmonary arteries. Bibasal reticular interstitial opacities and subsegmental atelectasis. The lungs are underexpanded . No pulmonary consolidation. IMPRESSION: Bibasal subsegmental atelectasis. No CHF or pneumonia.
[2016-10-13] MEDS: LOVENOX SUB-Q SCH ×2 (09:40→21:12)
[2016-10-13] MEDS: ZOSYN/NS 2.25 GM/50ML 2.25 GM/50 ML BAG IV SCH ×2 (12:33→18:20)
[2016-10-13] MEDS: VANCOMYCIN 1,250 MG in NACL 0.9% 250ML 250 ML IV SCH ×2 (12:47→19:02)
--- NOTE | 2016-10-13 16:38 | Progress Note ---
Assessment and Plan Assessment and Plan - Patient Problems (1) Sepsis Current Visit: Yes Status: Acute Qualifiers: Sepsis type: S Plan to address problem: Sepsis protocol: IV abx, Ivf, supportive care, serial lactate, monitor uop q shift, blood cultures, (2) ARF (acute renal failure) Current Visit: Yes Status: Acute Qualifiers: Acute renal failure type: A Plan to address problem: monitor uop q shift, repeat bmp (3) Acute respiratory failure with hypoxia Current Visit: Yes Status: Acute Plan to address problem: supplemental oxygen, nebs, aspiration precautions, ABG, NIPPV as clinically indicated (4) CHF exacerbation Current Visit: Yes Status: Acute Qualifiers: Congestive heart failure type: unspecified congestive heart failure type Qualified Code(s): I50.9 - Heart failure, unspecified Plan to address problem: CHF protocol: admit to telemetry, fluid restriction, monitor uop q shift, diuretics, afterload reduction, supportive care, (5) Toxic encephalopathy Current Visit: Yes Status: Acute Plan to address problem: Treat sepsis, IVF, supportive care, 7) LLE weaknrss.L knee warm to touch.More in favor of Gout.MRI to r/o acute stroke (6) DVT prophylaxis Current Visit: No Status: Acute Subjective Date of service: 10/13/16 Principal diagnosis: Sepsis Interval history: Complaints of L knee pain and weakness in LLE Objective - Constitutional Vitals: Vital Signs - 12hr 10/13/16 10/13/16 10/13/16 05:51 10:00 10:27 Temperature 99.6 F Pulse Rate Pulse Rate [ 95 H Left Radial] Respiratory 20 Rate Blood Pressure 119/65 [Left Radial Artery] O2 Sat by Pulse 93 95 96 Oximetry 10/13/16 10/13/16 10/13/16 11:00 11:25 13:03 Temperature 98.2 F 98.0 F Pulse Rate 102 H Pulse Rate [ 104 H 113 H Left Radial] Respiratory 20 20 Rate Blood Pressure 109/63 129/75 [Left Radial Artery] O2 Sat by Pulse 93 0 L Oximetry General appearance: Present: no acute distress, well-nourished - EENT Eyes: PERRL, EOM intact ENT: hearing intact, clear oral mucosa Ears: bilateral: normal - Neck Neck: supple, normal ROM - Respiratory Respiratory effort: normal Respiratory: bilateral: CTA - Breasts Breasts: normal - Cardiovascular Rhythm: regular Heart Sounds: Present: S1 & S2. Absent: gallop, rub Extremities: pulses intact, No edema, normal color, Full ROM - Gastrointestinal General gastrointestinal: Present: soft, non-tender, non-distended, normal bowel sounds - Genitourinary Male genitourinary: normal - Integumentary Integumentary: clear, warm, dry - Musculoskeletal Musculoskeletal: 1, strength equal bilaterally - Neurologic Neurologic: moves all extremities - Psychiatric Psychiatric: memory intact, appropriate mood/affect, intact judgment & insight - Labs CBC & Chem 7: 10/12/16 15:40 10/12/16 15:40 Labs: Abnormal lab results 10/12/16 Range/Units 18:19 Lactic Acid 2.10 H* (0.7-2.0) mmol/L
[2016-10-13] MEDS: COLCRYS PO SCH (21:12)
[2016-10-14] MEDS: ZOSYN/NS 2.25 GM/50ML 2.25 GM/50 ML BAG IV SCH ×3 (01:06→16:08)
[2016-10-14] MEDS: LASIX IV SCH ×2 (06:16→17:44)
[2016-10-14 07:55] LABS: Bacteria,Urine 1+ /HPF (Negative); Bilirubin,Urine NEG (Negative); Blood,Urine LG (Negative); Ketones,Urine NEG (Negative); Leukocyte Esterase,Urine TR (Negative); Nitrite,Urine NEG (Negative)
[2016-10-14 07:57] LABS: RBC,Urine > 182.0 /HPF (0.0-6.0)
[2016-10-14] MEDS: COLCRYS PO SCH ×2 (10:42→22:22)
[2016-10-14] MEDS: LOVENOX SUB-Q SCH ×2 (10:42→22:22)
[2016-10-14] MEDS: DELTASONE PO SCH (10:42)
--- NOTE | 2016-10-14 14:33 | Magnetic Resonance Report ---
MRI OF THE BRAIN WITHOUT CONTRAST: HISTORY: Left hemicolectomy September, CV PROCEDURE: Multiplanar, multisequence MR imaging of the brain without IV contrast was performed. FINDINGS: Mild diffuse cortical volume loss and minimal nonspecific chronic white matter changes are identified. These findings appear appropriate for this persons age. No evidence for acute ischemia, hemorrhage or mass. No chronic infarct or extra-axial fluid collection. The midline structures are central. The basal cisterns are patent. Normal ventricular size. The orbital cavities and sella turcica demonstrate no abnormality. The visualized paranasal sinuses and mastoid air cells are well aerated. IMPRESSION: No acute intracranial process. Age-appropriate cortical volume loss and chronic white matter changes.
--- NOTE | 2016-10-14 17:11 | Admit Criteria Form ---
Admission Criteria Documentation: RESPIRATORY FAILURE GRG Clinical Indications for Admission to Inpatient Care (Place 'X' for any and all applicable criteria): Hospital admission is needed for appropriate care of the patient because of acute respiratory failure or insufficiency as indicated by ANY ONE of the following(1)(2)(3)(4)(5)(6)(7)(8): [X ]I. Mechanical ventilation needed (acute invasive or noninvasive) [ ]II. Severe ventilation deficit as indicated by ANY ONE of the following (9) [ ]a) Respiratory acidosis (pH less than 7.32 and partial pressure of carbon dioxide greater than 40 mm Hg (5.3 kPa)) [ ]b) Partial pressure of carbon dioxide greater than 44 mm Hg (5.9 kPa ) (new) [ ]c) Airflow measurements less than 25% of predicted (eg, peak expiratory flow rate less than 100 L/minute) [ ]d) Forced vital capacity less than 15 mL/kg of ideal body weight, or 50% decrease in vital capacity from baseline [ ]III. Noncardiac pulmonary edema not resolving with rapid emergency treatment (8) [ ]IV. Severe respiratory distress as indicated by ANY ONE of the following: [ ]a) Severe tachypnea (respiratory rate greater than 30, greater than 45 for 6-month-old, greater than 60 for ) [ ]b) Severe hypoxemia (partial pressure of oxygen less than 50 mm Hg ( 6.7 kPa) on greater than 50% oxygen or partial pressure of oxygen to FIO2 ratio less than 200) [ ]c) Mental status deterioration from respiratory disease [ ]V. Airway obstruction or inadequate protection [A](10)(11) The original [email or web address] content created by [email or web address] has been revised. The portions of the content which have been revised are identified through the use of italic text or in bold, and [email or web address] has neither reviewed nor approved the modified material. All other unmodified content is copyright [email or web address]. Please see references footnoted in the original [email or web address] edition 2016 Admission Criteria Met: Yes
[2016-10-14] MEDS: VANCOMYCIN 1,250 MG in NACL 0.9% 250ML 250 ML IV SCH (17:45)
--- NOTE | 2016-10-15 00:13 | Progress Note ---
Assessment and Plan Assessment and plan: 76 YO Male with CHF Diastolic Dysfunction, Dementia, HTN, DVT/PE on Anticoagulation, Pulmonary Hypertension, presents to ED for evaluation. Pt unable to provide detailed history. Pt history taken from family members who are at bedside during exam and interview. Pt family states that patient has become increasingly weak and confused over one week. His daughter Veronica states that he does have dementia and has good days and bad days, but that he has been progressively declining, she also states that his RLE has been swollen 1) Sepsis was ruled out (2) ARF (acute renal failure) due to vasomotor nephropathy, should improve renal perfusion with diuretics monitor uop q shift, repeat bmp (3) Acute respiratory failure with hypoxia supplemental oxygen, nebs, aspiration precautions, ABG, NIPPV as clinically indicated assess for home oxygen (4) acute CHF exacerbation, diastolic CHF protocol: admit to telemetry, fluid restriction, monitor uop q shift, diuretics, afterload reduction, supportive care, (5) Toxic encephalopathy Treat sepsis, IVF, supportive care, 7) CVA was ruled out * MR Brain unremarkable * Patient states now that weakness was on both sides 8. Hematuria likely 2/2 hart trauma, resolving dc hart when hematuria resolves 9. RLE edema obtain Venous dopplers 10. Debility/Ambulatory Dysfunction Continue PT History Interval history: he denies sob, denies focal weakness, admits to generalized weakness and progressive problems accomplishing his ADLs His daughter is complaining of right lower extremity edema RN noted that he had blood in his [facility] Physical - Physical exam Narrative exam: GENERAL: The patient appeared well nourished and normally developed. Vital signs as documented. HEAD: No signs of head trauma. EYES: Pupils are equal. Extraocular motions intact. EARS: Hearing grossly intact. MOUTH: Oropharynx is normal. NECK: No adenopathy, no JVD. CHEST: Chest with clear breath sounds bilaterally. No wheezes, rales, or rhonchi. CARDIAC: Regular rate and rhythm. S1 and S2, without murmurs, gallops, or rubs. VASCULAR: No Edema. Peripheral pulses normal and equal in all extremities. ABDOMEN: Soft, without detectable tenderness. No sign of distention. No rebound or guarding, and no masses palpated. Bowel Sounds normal. MUSCULOSKELETAL: Good range of motion of all major joints. Extremities without clubbing, cyanosis or edema. NEUROLOGIC EXAM: Alert and oriented x 1. No focal sensory or strength deficits. Speech normal. Generalized weakness, forgetful, his judgment is current acceptable PSYCHIATRIC: Mood normal. Demented SKIN: No rash or lesions. - Constitutional Vitals: Temp Pulse Resp BP Pulse Ox 98.2 F 111 H 20 139/83 94 10/14/16 20:00 10/14/16 20:00 10/14/16 20:00 10/14/16 20:00 10/14/16 22:00 General appearance: Present: no acute distress, well-nourished Results - Labs CBC & Chem 7: 10/16/16 04:07 10/16/16 12:57 Labs: Laboratory Last Values WBC 8.3 K/mm3 (4.5-11.0) 10/12/16 15:40 RBC 5.27 M/mm3 (3.65-5.03) H 10/12/16 15:40 Hgb 16.1 gm/dl (11.8-15.2) H 10/12/16 15:40 Hct 48.2 % (35.5-45.6) H 10/12/16 15:40 MCV 91 fl (84-94) 10/12/16 15:40 MCH 31 pg (28-32) 10/12/16 15:40 MCHC 33 % (32-34) 10/12/16 15:40 RDW 14.9 % (13.2-15.2) 10/12/16 15:40 Plt Count 186 K/mm3 (140-440) 10/12/16 15:40 Lymph % (Auto) 7.3 % (13.4-35.0) L 10/12/16 15:40 [place] % (Auto) 14.8 % (0.0-7.3) H 10/12/16 15:40 Eos % (Auto) 0.1 % (0.0-4.3) 10/12/16 15:40 Baso % (Auto) 0.3 % (0.0-1.8) 10/12/16 15:40 Lymph # 0.6 K/mm3 (1.2-5.4) L 10/12/16 15:40 [place] # 1.2 K/mm3 (0.0-0.8) H 10/12/16 15:40 Eos # 0.0 K/mm3 (0.0-0.4) 10/12/16 15:40 Baso # 0.0 K/mm3 (0.0-0.1) 10/12/16 15:40 Seg Neutrophils % 77.5 % (40.0-70.0) H 10/12/16 15:40 Seg Neutrophils # 6.5 K/mm3 (1.8-7.7) 10/12/16 15:40 PT 20.3 Sec. (12.2-14.9) H 10/12/16 15:40 INR 1.64 (0.87-1.13) H 10/12/16 15:40 APTT 38.2 Sec. (24.2-36.6) H 10/12/16 15:40 D-Dimer 302.5 ng/mlDDU (0-234) H 10/12/16 15:40 Sodium 137 mmol/L (137-145) 10/12/16 15:40 Potassium 3.5 mmol/L (3.6-5.0) L 10/12/16 15:40 Chloride 93.2 mmol/L (98-107) L 10/12/16 15:40 Carbon Dioxide 31 mmol/L (22-30) H 10/12/16 15:40 Anion Gap 16 mmol/L 10/12/16 15:40 BUN 40 mg/dL (9-20) H 10/12/16 15:40 Creatinine 2.0 mg/dL (0.8-1.5) H 10/12/16 15:40 Estimated GFR 40 ml/min 10/12/16 15:40 BUN/Creatinine Ratio 20.00 % 10/12/16 15:40 Glucose 109 mg/dL (75-100) H 10/12/16 15:40 Lactic Acid 2.10 mmol/L (0.7-2.0) H* 10/12/16 18:19 Calcium 9.0 mg/dL (8.4-10.2) 10/12/16 15:40 Magnesium 2.00 mg/dL (1.7-2.3) 10/12/16 15:40 Total Bilirubin 1.00 mg/dL (0.1-1.2) 10/12/16 15:40 AST 54 units/L (5-40) H 10/12/16 15:40 ALT 26 units/L (7-56) 10/12/16 15:40 Alkaline Phosphatase 57 units/L (35-129) 10/12/16 15:40 NT-Pro-B Natriuret Pep 2820 pg/mL (0-900) H 10/12/16 15:40 Total Protein 7.3 g/dL (6.3-8.2) 10/12/16 15:40 Albumin 3.3 g/dL (3.9-5) L 10/12/16 15:40 Albumin/Globulin Ratio 0.8 % 10/12/16 15:40 TSH 1.630 mlU/mL (0.270-4.200) 10/12/16 15:40 Urine Color Yellow (Yellow) 10/14/16 06:00 Urine Turbidity Clear (Clear) 10/14/16 06:00 Urine pH 8.0 (5.0-7.0) H 10/14/16 06:00 Ur Specific [place] 1.013 (1.003-1.030) 10/14/16 06:00 Urine Protein 30 mg/dl mg/dL (Negative) 10/14/16 06:00 Urine Glucose (UA) Neg mg/dL (Negative) 10/14/16 06:00 Urine Ketones Neg mg/dL (Negative) 10/14/16 06:00 Urine Blood Lg (Negative) 10/14/16 06:00 Urine Nitrite Neg (Negative) 10/14/16 06:00 Urine Bilirubin Neg (Negative) 10/14/16 06:00 Urine Urobilinogen 2.0 mg/dL (<2.0) 10/14/16 06:00 Ur Leukocyte Esterase Tr (Negative) 10/14/16 06:00 Urine WBC (Auto) 7.0 /HPF (0.0-6.0) H 10/14/16 06:00 Urine RBC (Auto) > 182.0 /HPF (0.0-6.0) 10/14/16 06:00 Urine Bacteria (Auto) 1+ /HPF (Negative) 10/14/16 06:00 Urine Mucus Few /HPF 10/12/16 16:30 Salicylates < 0.3 mg/dL (2.8-20.0) L 10/12/16 15:40 Urine Opiates Screen Presumptive negative 10/12/16 16:30 Urine Methadone Screen Presumptive negative 10/12/16 16:30 Acetaminophen < 15.0 ug/mL (10.0-30.0) 10/12/16 15:40 Ur Barbiturates Screen Presumptive negative 10/12/16 16:30 Ur Phencyclidine Scrn Presumptive negative 10/12/16 16:30 Ur Amphetamines Screen Presumptive negative 10/12/16 16:30 U Benzodiazepines Scrn Presumptive negative 10/12/16 16:30 Urine Cocaine Screen Presumptive negative 10/12/16 16:30 U Marijuana (THC) Screen Presumptive negative 10/12/16 16:30 Drugs of Abuse Note Disclamer 10/12/16 16:30 Plasma/Serum Alcohol < 0.01 gm% (0-0.07) 10/12/16 15:40
[2016-10-15] MEDS: ZOSYN/NS 2.25 GM/50ML 2.25 GM/50 ML BAG IV SCH ×4 (00:32→18:22)
[2016-10-15] MEDS: LASIX IV SCH ×2 (05:09→18:20)
[2016-10-15] MEDS: COLCRYS PO SCH ×2 (10:33→21:48)
[2016-10-15] MEDS: DELTASONE PO SCH (10:33)
[2016-10-15] MEDS ORDERED: COUMADIN PO SCH (12:00)
[2016-10-15] MEDS ORDERED: ATIVAN IV ONE (12:15)
[2016-10-15] MEDS ORDERED: BUMEX PO SCH (13:00)
[2016-10-15] MEDS ORDERED: CITRACAL D 315MG-250 UNITS PO SCH (14:00)
[2016-10-15] MEDS: REVATIO PO SCH ×2 (14:31→21:05)
[2016-10-15] MEDS: LOVENOX SUB-Q SCH ×2 (15:00→21:49)
--- NOTE | 2016-10-15 15:21 | Progress Note ---
Assessment and Plan Assessment and plan: 76 YO Male with CHF Diastolic Dysfunction, Dementia, HTN, DVT/PE on Anticoagulation, Pulmonary Hypertension, presents to ED for evaluation. Pt unable to provide detailed history. Pt history taken from family members who are at bedside during exam and interview. Pt family states that patient has become increasingly weak and confused over one week. His daughter Veronica states that he does have dementia and has good days and bad days, but that he has been progressively declining. Patient on 3rd day of hospital stay was still unwilling to be examined, or provide any information, and as some point combative. 1) Toxic encephalopathy * Likely progression of Dementia. Continue empiric treatment for UTI, monitor culture (2)Acute Rt lower ext DVT -Restart warfarin, pharmcy to dose. patient with prior hx of DVT/PE, Continue lovenox till therapeutic (3)Acute kidney injury monitor uop q shift, repeat bmp Patient follows with Healthcare Management Consultant outpatient. Last documented creat was 1.9 (4) Acute respiratory failure with hypoxia Resolved. supplemental oxygen, nebs, aspiration precautions, ABG, NIPPV as clinically indicated. unable to obtain V/Q scan chest due to patients combative behavior (5) Dementia Outpatient neurology evaluation. family agreable. refused placement. Discontinue restraints, re-orient. (6) UTI IVF, supportive care, continue antibiotics, await urine culture. 7) CVA was ruled out * MR Brain unremarkable * Patient states now that weakness was on both sides (8). Hematuria likely 2/2 hart trauma, resolving (9) SECONDARY COAGULOPATHY * Continue warfarin (10) Sepsis was ruled out PLAN of care discussed with daughter in detail History Interval history: Patient seen and examined this morning, states he does not want to be bothered. Very noncooperative. Bedside states that this has been ongoing in the past few months although worse in the last few days. Hospitalist Physical - Physical exam Narrative exam: VITAL SIGNS: Reviewed. Limited exam due to patient's noncompliance. GENERAL: The patient appeared well nourished and normally developed. Vital signs as documented. HEAD: No signs of head trauma. EYES: Pupils are equal. Extraocular motions intact. EARS: Hearing grossly intact. MOUTH: Oropharynx is normal. NECK: No adenopathy, no JVD. CHEST: Chest with clear breath sounds bilaterally. No wheezes, rales, or rhonchi. CARDIAC: Regular rate and rhythm. S1 and S2, without murmurs, gallops, or rubs. VASCULAR: No Edema. Peripheral pulses normal and equal in all extremities. ABDOMEN: Soft, without detectable tenderness. No sign of distention. No rebound or guarding, and no masses palpated. Bowel Sounds normal. MUSCULOSKELETAL: Good range of motion of all major joints. Extremities without clubbing, cyanosis or edema. NEUROLOGIC EXAM: Alert and oriented x 1. No focal sensory or strength deficits. Speech normal. NOT FOLLOWING COMMANDS BY CHOICE. combative at times. PSYCHIATRIC: Mood normal. SKIN: No rash or lesions. - Constitutional Vitals: Temp Pulse Resp BP Pulse Ox 98.8 F 104 H 20 128/84 91 10/15/16 08:25 10/15/16 08:25 10/15/16 08:25 10/15/16 08:25 10/15/16 08:25 General appearance: Present: no acute distress, well-nourished Results - Labs CBC & Chem 7: 10/12/16 15:40 10/12/16 15:40 Labs: Laboratory Last Values WBC 8.3 K/mm3 (4.5-11.0) 10/12/16 15:40 RBC 5.27 M/mm3 (3.65-5.03) H 10/12/16 15:40 Hgb 16.1 gm/dl (11.8-15.2) H 10/12/16 15:40 Hct 48.2 % (35.5-45.6) H 10/12/16 15:40 MCV 91 fl (84-94) 10/12/16 15:40 MCH 31 pg (28-32) 10/12/16 15:40 MCHC 33 % (32-34) 10/12/16 15:40 RDW 14.9 % (13.2-15.2) 10/12/16 15:40 Plt Count 186 K/mm3 (140-440) 10/12/16 15:40 Lymph % (Auto) 7.3 % (13.4-35.0) L 10/12/16 15:40 [place] % (Auto) 14.8 % (0.0-7.3) H 10/12/16 15:40 Eos % (Auto) 0.1 % (0.0-4.3) 10/12/16 15:40 Baso % (Auto) 0.3 % (0.0-1.8) 10/12/16 15:40 Lymph # 0.6 K/mm3 (1.2-5.4) L 10/12/16 15:40 [place] # 1.2 K/mm3 (0.0-0.8) H 10/12/16 15:40 Eos # 0.0 K/mm3 (0.0-0.4) 10/12/16 15:40 Baso # 0.0 K/mm3 (0.0-0.1) 10/12/16 15:40 Seg Neutrophils % 77.5 % (40.0-70.0) H 10/12/16 15:40 Seg Neutrophils # 6.5 K/mm3 (1.8-7.7) 10/12/16 15:40 PT 20.3 Sec. (12.2-14.9) H 10/12/16 15:40 INR 1.64 (0.87-1.13) H 10/12/16 15:40 APTT 38.2 Sec. (24.2-36.6) H 10/12/16 15:40 D-Dimer 302.5 ng/mlDDU (0-234) H 10/12/16 15:40 Sodium 137 mmol/L (137-145) 10/12/16 15:40 Potassium 3.5 mmol/L (3.6-5.0) L 10/12/16 15:40 Chloride 93.2 mmol/L (98-107) L 10/12/16 15:40 Carbon Dioxide 31 mmol/L (22-30) H 10/12/16 15:40 Anion Gap 16 mmol/L 10/12/16 15:40 BUN 40 mg/dL (9-20) H 10/12/16 15:40 Creatinine 2.0 mg/dL (0.8-1.5) H 10/12/16 15:40 Estimated GFR 40 ml/min 10/12/16 15:40 BUN/Creatinine Ratio 20.00 % 10/12/16 15:40 Glucose 109 mg/dL (75-100) H 10/12/16 15:40 Lactic Acid 2.10 mmol/L (0.7-2.0) H* 10/12/16 18:19 Calcium 9.0 mg/dL (8.4-10.2) 10/12/16 15:40 Magnesium 2.00 mg/dL (1.7-2.3) 10/12/16 15:40 Total Bilirubin 1.00 mg/dL (0.1-1.2) 10/12/16 15:40 AST 54 units/L (5-40) H 10/12/16 15:40 ALT 26 units/L (7-56) 10/12/16 15:40 Alkaline Phosphatase 57 units/L (35-129) 10/12/16 15:40 NT-Pro-B Natriuret Pep 2820 pg/mL (0-900) H 10/12/16 15:40 Total Protein 7.3 g/dL (6.3-8.2) 10/12/16 15:40 Albumin 3.3 g/dL (3.9-5) L 10/12/16 15:40 Albumin/Globulin Ratio 0.8 % 10/12/16 15:40 TSH 1.630 mlU/mL (0.270-4.200) 10/12/16 15:40 Urine Color Yellow (Yellow) 10/14/16 06:00 Urine Turbidity Clear (Clear) 10/14/16 06:00 Urine pH 8.0 (5.0-7.0) H 10/14/16 06:00 Ur Specific [place] 1.013 (1.003-1.030) 10/14/16 06:00 Urine Protein 30 mg/dl mg/dL (Negative) 10/14/16 06:00 Urine Glucose (UA) Neg mg/dL (Negative) 10/14/16 06:00 Urine Ketones Neg mg/dL (Negative) 10/14/16 06:00 Urine Blood Lg (Negative) 10/14/16 06:00 Urine Nitrite Neg (Negative) 10/14/16 06:00 Urine Bilirubin Neg (Negative) 10/14/16 06:00 Urine Urobilinogen 2.0 mg/dL (<2.0) 10/14/16 06:00 Ur Leukocyte Esterase Tr (Negative) 10/14/16 06:00 Urine WBC (Auto) 7.0 /HPF (0.0-6.0) H 10/14/16 06:00 Urine RBC (Auto) > 182.0 /HPF (0.0-6.0) 10/14/16 06:00 Urine Bacteria (Auto) 1+ /HPF (Negative) 10/14/16 06:00 Urine Mucus Few /HPF 10/12/16 16:30 Salicylates < 0.3 mg/dL (2.8-20.0) L 10/12/16 15:40 Urine Opiates Screen Presumptive negative 10/12/16 16:30 Urine Methadone Screen Presumptive negative 10/12/16 16:30 Acetaminophen < 15.0 ug/mL (10.0-30.0) 10/12/16 15:40 Ur Barbiturates Screen Presumptive negative 10/12/16 16:30 Ur Phencyclidine Scrn Presumptive negative 10/12/16 16:30 Ur Amphetamines Screen Presumptive negative 10/12/16 16:30 U Benzodiazepines Scrn Presumptive negative 10/12/16 16:30 Urine Cocaine Screen Presumptive negative 10/12/16 16:30 U Marijuana (THC) Screen Presumptive negative 10/12/16 16:30 Drugs of Abuse Note Disclamer 10/12/16 16:30 Plasma/Serum Alcohol < 0.01 gm% (0-0.07) 10/12/16 15:40
[2016-10-15 17:27] LABS: INR 1.42 (0.87-1.13)
[2016-10-15] MEDS: COUMADIN PO SCH (20:11)
[2016-10-15] MEDS: ZYLOPRIM PO SCH (21:47)
[2016-10-15] MEDS: NEURONTIN PO SCH (21:47)
[2016-10-15] MEDS: CATAPRES PO SCH (21:48)
[2016-10-15] MEDS ORDERED: LOPRESSOR PO SCH (22:00)
[2016-10-16] MEDS: ZOSYN/NS 2.25 GM/50ML 2.25 GM/50 ML BAG IV SCH ×4 (00:30→18:11)
[2016-10-16 05:19] LABS: Hematocrit 51.9 % (35.5-45.6); Hemoglobin 17.3 gm/dl (11.8-15.2); Mean Corpuscular HGB Conc 33 % (32-34); Mean Corpuscular Hemoglobin 30 pg (28-32); Mean Corpuscular Volume 90 fl (84-94); Platelet Count 242 K/mm3 (140-440); Red Blood Count 5.75 M/mm3 (3.65-5.03); Red Cell Distribution Width 14.4 % (13.2-15.2); White Blood Count 8.3 K/mm3 (4.5-11.0)
[2016-10-16 05:28] LABS: INR 1.42 (0.87-1.13)
[2016-10-16] MEDS: LASIX IV SCH ×2 (05:51→18:12)
[2016-10-16 06:02] LABS: BUN/Creatinine Ratio 28.33; Chloride 95.9 mmol/L (98-107)
[2016-10-16 06:03] LABS: Potassium 5.1 mmol/L (3.6-5.0)
--- NOTE | 2016-10-16 09:38 | Query-Infection ---
Stephen Osuna____Janes Date:___10/16/16 Grader Tender/CDS:____Marcus Phone#:___[phone] Exercise your independent professional judgment when responding to this query. Questions asked do not imply a particular answer is desired or expected. We greatly appreciate your clarification on this issue. Clinical Documentation States: 76 year old male was admitted on 10/12/16. The hospitalist progress note (10/15/16) states " 76 YO Male with CHF Diastolic Dysfunction, Dementia, HTN, DVT/PE on Anticoagulation, Pulmonary Hypertension, presents to ED for evaluation 1) Toxic encephalopathy Likely progression of Dementia. Continue empiric treatment for UTI, monitor culture (6) UTI IVF, supportive care, continue antibiotics, await urine culture. " IV Piperacillin/Trazobactam Pulse rate: 102 Temperature: 100.8 Respiratory rate: 22 Clinical findings show: (please check applicable parameters) Infection, known /suspected, with some of the following indicators; Specify the infection: 3 General parameters [x] Fever (core temp >38.30C or 100.40F) [ ] Hypothermia (core temp <36C) [x] Heart rate >90 bpm [x] Tachypnea: >20 bpm or pCO2 < 32 mmHg [x] Altered mental status [ ] Significant edema / +ve fluid balance (>20 ml/kg 24 h) [ ] Hyperglycemia (Bl. glucose >110 mg/dl) w/o diabetes Inflammatory parameters [ ] Leukocytosis (white blood cell count >12,000/l) [ ] Leukopenia (white blood cell count <4,000/l) [ ] Bandemia (immature WBC > 10%) [ ] Leucocyte Left Shift [ ] Plasma procalcitonin>2 SD above the normal value Hemodynamic and tissue perfusion parameters [ ] Arterial hypotension(SBP <90 mmHg, MAP <70 mmHg,or a SBP drop >40 mmHg in adults) [ ] Hyperlactatemia (>3 mmol/l) [ ] Anion Gap (> 11mEG/l) [ ] Decreased capillary refill or mottling Organ dysfunction parameters [ ] Arterial hypoxemia (PaO2/FIO2 <300) [ ] Creatinine increase =0.5 mg/dl [ ] Acute oliguria (urine output <0.5 ml | kg |h or 45 mM/l for at least 2 hrs) [ ] Coagulation abnormalities (INR >1.5 or activated partial thromboplastin time >60 s) [ ] Ileus (absent esme wel sounds) [ ] Thrombocytopenia (platelet count <100,000/l) [ ] Hyperbilirubinemia (plasma total bilirubin >4 mg/dl) According to the clinical indications above, can Bacteremia be further specified? If so, please indicate below and in your Progress Notes and/ or Discharge Summary. Indicate if the condition was present on admission. PHYSICIAN RESPONSE: [ x] Sepsis [ ] Severe Sepsis [ ] Septic Shock [ ] Septicemia [ ] Sepsis now resolved [ ] SIRS due to non-infectious cause with organ dysfunction [ ] SIRS due to non-infectious cause without organ dysfunction [ ] Other: [ ] Comment/Explanation: Present on Admission: [y ] Yes (Y) [ ] Clinically undeterminable (W) [ ] No (N) [ ] Ruled Out Please also document response in your Progress Notes and/or Discharge Summary and indicate if the condition was present on admission Notes: SIRS/ SIRS WITH ORGAN DYSFUNCTION Systemic inflammatory response syndrome (SIRS) generally refers to the systemic response to trauma/sims or other insult such as Acute Myocardial Infarction, Acute Pancreatitis, and Major Surgery with symptoms including fever, tachycardia , tachypnea, and leukocytosis (1). BACTEREMIA Presence of viable bacteria in the circulating blood (2). This term is reserved for patients that do not manifest above SIRS response. SEPTICEMIA Generally refers to a systemic disease associated with the presence of pathological microorganisms or toxins in the blood, which can include bacteria, viruses, fungi or other organisms (1). SEPSIS Generally refers to SIRS due infection (1). SEVERE SEPSIS Generally refers to sepsis associated with acute organ dysfunction (1). SEPTIC SHOCK Generally refers to circulatory failure associated with severe sepsis (2), and defined as hypotension or hypoperfusion despite adequate fluid resuscitation (1 hour) (3). REFERENCES: 1. [place] [employer]/Society of Critical Care Medicine Consensus Conference. Definitions for sepsis and organ failure and guidelines for the use of innovative therapies in sepsis. Critical Care Med 1992;20:864 - 74. 2. Frankie y MM, Bonnie MP, Romaine SANJUANA, Steven E, Eduardo D, Jhonatan D, Jensen J, Gladwyne SM , Juan Miguel JL, Jose G; International Sepsis Definitions Conference. 2001 SCCM/ESICM/ACCP/ATS/SIS International Sepsis Definitions Conference. Intensive Care Med. 2002 Apr;29(4):530-8. Epub 2002Jul 02. Review. PubMed PMID:13194240 3. ICD-9-CM Official Guidelines for Coding and Reporting 4. Medscape Drugs, Diseases and Procedures references 5. [employer] Textbook of Internal Medicine. 18th Edition MTDD
[2016-10-16] MEDS: LOVENOX SUB-Q SCH (09:42)
[2016-10-16] MEDS: ZYLOPRIM PO SCH (09:43)
[2016-10-16] MEDS: NEURONTIN PO SCH (09:43)
[2016-10-16] MEDS: COLCRYS PO SCH (09:43)
[2016-10-16] MEDS: DELTASONE PO SCH (09:43)
[2016-10-16] MEDS: REVATIO PO SCH ×2 (09:43→15:06)
[2016-10-16] MEDS: CATAPRES PO SCH (09:44)
[2016-10-16] MEDS ORDERED: LOPRESSOR PO SCH ×2 (10:00)
[2016-10-16] MEDS ORDERED: KLOR-CON 8 PO SCH (10:00)
[2016-10-16] MEDS ORDERED: KIONEX PO ONE (10:00)
--- NOTE | 2016-10-16 10:37 | Discharge Summary ---
Providers - Providers Date of Admission: 10/12/16 17:24 Date of discharge: 10/16/16 Attending physician: LISA ENGEL MD 10/14/16 10:13 Physical Therapy Evaluation and Treat [CONS] Routine Comment: Reason For Exam: debility Primary care physician: [facility] GRINDER Hospitalization Reason for admission: altered mental status Condition: Stable Hospital course: 76 YO Male with CHF Diastolic Dysfunction, Dementia, HTN, DVT/PE on Anticoagulation, Pulmonary Hypertension, presents to ED for evaluation. Pt unable to provide detailed history. Pt history taken from family members who are at bedside during exam and interview. Pt family states that patient has become increasingly weak and confused over one week. His daughter Veronica states that he does have dementia and has good days and bad days, but that he has been progressively declining. Patient on 3rd day of hospital stay was still unwilling to be examined, or provide any information, and as some point combative. She was started on empiric antibiotic coverage for UTI. Initially he was restrained but this was subsequently removed. Cultures at this point did not grow any bacteria substantially but patient's mental status significantly improved. Again as mentioned restraints were taken off of. [place] catheter was discontinued. He was however noted to have acute right lower extremity DVT. His warfarin orders were started and did discuss with him about possibly changing him to Eliquis but he refused. He would like to follow- up with his primary care physician and also with his sap bi developer and continuous yarn dyeing machine operator. Patient is stable at this point for discharge as noted. Also discussed with the daughter about his mental status with dementia this needs further workup which can be done outpatient. Condition is stable. 1) Toxic encephalopathy (2)Acute Rt lower ext DVT (3) CK D stage III (4) Acute respiratory failure with hypoxia (5) Dementia (6) acute cystitis (7). Hematuria (8) SECONDARY COAGULOPATHY * Disposition: [id number] HOME UNDER HOME [facility] [place] Time spent for discharge: 35 mins Core Measure Documentation - Palliative Care Palliative Care/ Comfort Measures: Not Applicable - Core Measures Any of the following diagnoses?: none - VTE Discharge Requirements Deep Vein Thrombosis/Pulmonary Embolism Present on Admission: No Exam - Physical Exam Narrative exam: VITAL SIGNS: Reviewed. Limited exam due to patient's noncompliance. GENERAL: The patient appeared well nourished and normally developed. Vital signs as documented. HEAD: No signs of head trauma. EYES: Pupils are equal. Extraocular motions intact. EARS: Hearing grossly intact. MOUTH: Oropharynx is normal. NECK: No adenopathy, no JVD. CHEST: Chest with clear breath sounds bilaterally. No wheezes, rales, or rhonchi. CARDIAC: Regular rate and rhythm. S1 and S2, without murmurs, gallops, or rubs. VASCULAR: No Edema. Peripheral pulses normal and equal in all extremities. ABDOMEN: Soft, without detectable tenderness. No sign of distention. No rebound or guarding, and no masses palpated. Bowel Sounds normal. MUSCULOSKELETAL: Good range of motion of all major joints. Extremities without clubbing, cyanosis or edema. NEUROLOGIC EXAM: Alert and oriented x 3. No focal sensory or strength deficits. Speech normal. Following commands more calm. PSYCHIATRIC: Mood normal. SKIN: No rash or lesions. - Constitutional Vitals: Temp Pulse Resp BP Pulse Ox 97.5 F L 82 16 104/71 96 10/16/16 05:31 10/16/16 09:58 10/16/16 05:31 10/16/16 05:31 10/16/16 08:32 Plan Activity: advance as tolerated, fall precautions Diet: low salt Special Instructions: record daily BP diary Additional Instructions: check INR and Potassium in on friday10/18/16. send report to PCP. Follow with primary continuous yarn dyeing machine operator and Electric Sign Assembler in 1 week Follow up with: PRIMARY MD ARTUR [Primary Care Provider] - 3-5 Days Forms: Warfarin Discharge Instruction Prescriptions: Enoxaparin [Lovenox] 90 mg SUB-Q Q12HR #10 syringe
--- NOTE | 2016-10-16 11:00 | Vascular Lab Report ---
LOWER EXTREMITY VENOUS DUPLEX: REASON FOR EXAM: Pain and swelling of the lower extremities. COMMENTS ON THE RIGHT: Deep venous thrombosis noted in the popliteal vein. The remaining veins visualized are freely compressible without evidence of internal echogenicity. Spontaneous and phasic flow is absent proximally. COMMENTS ON THE LEFT: All veins visualized are freely compressible without evidence of internal echogenicity. Flow is spontaneous and phasic throughout. Soft tissue changes appear to be a ruptured Ahn's cyst IMPRESSION: Deep venous thrombosis in the right lower extremity
[2016-10-16 13:39] LABS: BUN/Creatinine Ratio 28.42; Calcium 8.8 mg/dL (8.4-10.2); Chloride 97.4 mmol/L (98-107); Potassium 3.5 mmol/L (3.6-5.0)
[2016-10-16] MEDS: COUMADIN PO SCH (18:12)
[2016-10-16 18:36] VITALS: BP 122/74
== END 2016-10-16 19:29 | disposition home health service (06) | DRG 871 ==
LOC: ED 14:49 → 4A 17:24
PROVIDERS: ADMIT Internal Medicine; ATTEND Internal Medicine
DX: A41.9 Sepsis, unspecified organism (principal); G92 Toxic encephalopathy; J96.01 Acute respiratory failure with hypoxia; N17.9 Acute kidney failure, unspecified; D68.9 Coagulation defect, unspecified; N30.01 Acute cystitis with hematuria; I82.401 Acute embolism and thrombosis of unspecified deep veins of right lower extremity; I13.0 Hypertensive heart and chronic kidney disease with heart failure and stage 1 through stage 4 chronic kidney disease, or unspecified chronic kidney disease; F03.90 Unspecified dementia, unspecified severity, without behavioral disturbance, psychotic disturbance, mood disturbance, and anxiety; I27.2 Other secondary pulmonary hypertension; Z82.49 Family history of ischemic heart disease and other diseases of the circulatory system; N18.3 Chronic kidney disease, stage 3 (moderate); I50.9 Heart failure, unspecified
CPT/HCPCS: 36415; 70551; 71010; 80048; 80053; 80307; 80320; 81001; 82140; 83735; 83880; 84443; 85025; 85027; 85379; 85610; 85730; 87040; 87086; 93005; 93010; 93970; 94760; G0480; G8978-GP; G8979-GP; J1650; J1940; J2060; J2543; J3370; J7030; J7040; J7050; J7512

== ENCOUNTER 2017-01-28 12:51 | Emergency (ER) | payer MEDICARE ==
[2017-01-28 13:54] LABS: Basophils % (Auto) 0.3 % (0.0-1.8); Hematocrit 45.1 % (35.5-45.6); Hemoglobin 15.4 gm/dl (11.8-15.2); Mean Corpuscular HGB Conc 34 % (32-34); Mean Corpuscular Hemoglobin 31 pg (28-32); Mean Corpuscular Volume 92 fl (84-94); Platelet Count 234 K/mm3 (140-440); Red Blood Count 4.92 M/mm3 (3.65-5.03); White Blood Count 8.8 K/mm3 (4.5-11.0)
--- NOTE | 2017-01-28 13:56 | XRay Report ---
BILATERAL HAND RADIOGRAPHS INDICATION: Fall, hand swelling. COMPARISON: None similar. FINDINGS: AP and lateral bilateral hand radiographs demonstrate mild osteoarthritic changes as at the first carpometacarpal joint and some interphalangeal. Intact overall bony articulation. Grossly unremarkable soft tissues. CONCLUSION: No acute radiographic abnormality with mild bilateral hand osteoarthritic changes noted, as above. Thank you for the opportunity to participate in this patient's care.
[2017-01-28 14:01] LABS: INR 2.48 (0.87-1.13)
[2017-01-28 14:02] LABS: Partial Thromboplastin Time 38.7 Sec. (24.2-36.6)
[2017-01-28 14:11] LABS: Alanine Aminotransferase 23 units/L (7-56); Albumin 3.4 g/dL (3.9-5); Alkaline Phosphatase 65 units/L (35-129); Anion Gap 22 mmol/L; BUN/Creatinine Ratio 12; Blood Urea Nitrogen 16 mg/dL (9-20); Calcium 9.2 mg/dL (8.4-10.2); Carbon Dioxide 18 mmol/L (22-30); Chloride 105.6 mmol/L (98-107); Glucose 114 mg/dL (75-100); Potassium 4.2 mmol/L (3.6-5.0); Sodium 141 mmol/L (137-145); Total Protein 6.9 g/dL (6.3-8.2)
[2017-01-28 14:14] LABS: Bilirubin,Direct < 0.2 mg/dL (0-0.2); Bilirubin,Indirect 0.2 mg/dL
--- NOTE | 2017-01-28 14:19 | XRay Report ---
PORTABLE CHEST INDICATION: Chest trauma. COMPARISON: 10/12/2016 FINDINGS: Portable, frontal chest radiograph again demonstrates limited inspiration with exaggerated cardiomediastinal silhouette and slightly crowded lung markings centrally. Resolved bibasilar atelectasis without significant pleural effusions or CHF. Aortic knob calcifications. EKG leads. Intact bones. CONCLUSION: No acute significant chest process, as described. Thank you for the opportunity to participate in this patient's care.
--- NOTE | 2017-01-28 14:38 | Emergency Department Report ---
ED General Adult HPI - General Chief complaint: Fall Stated complaint: FELL/HAND INJURY Time Seen by Provider: 01/28/17 13:12 Source: EMS Mode of arrival: Stretcher Limitations: Physical Limitation - History of Present Illness Initial comments: The patient arrives with family member who states that he does have frequent falls. He does have home health. His home health nurse was concerned that the bruising of his hand and advised transport to the emergency department for evaluation. Apparently the patient was found on the floor and he was beating the back of his hand on the floor. His daughter (I presume it is his daughter) tells me that she periodically gives him the Seroquel for this behavior and that it is nothing new. Patient himself is not a source of any medication. He is anticoagulated. The home health nurse did a INR which was reported to me to be 2.9 this morning. There is no history of head injury. Also, the family noted that a small ecchymotic area near the sternum. -: Gradual, During the night Location: right Radiation: non-radiation Severity scale (0 -10): 0 Quality: other (could not describe) Consistency: intermittent Improves with: none Worsens with: none Treatments Prior to Arrival: none - Related Data Home Medications Medication Instructions Recorded Confirmed Last Taken Finasteride 5 mg PO DAILY 09/12/13 01/10/17 1 Day Ago Warfarin [Coumadin] 5 mg PO 4XW 09/12/13 01/10/17 1 Day Ago Sildenafil [Revatio] 20 mg PO TID 07/01/15 01/10/17 1 Day Ago Allopurinol [Zyloprim] 100 mg PO BID 10/12/16 01/10/17 1 Day Ago Calcium Citrate/Vitamin D3 [Gnp 1 tab PO 1XW 10/12/16 01/10/17 1 Day Ago Calcium Citrate-Vit D3 Tab] Cholecalciferol Vit D3 [Vitamin D3] 1,000 unit PO QDAY #0 10/12/16 01/10/17 1 Day Ago Gabapentin [Neurontin] 300 mg PO BID 10/12/16 01/10/17 1 Day Ago Previous Rx's Medication Instructions Recorded Last Taken Type Polyethylene Glycol 3350 [Miralax 17 gm PO QDAY powd.pack 11/12/16 1 Day Ago Rx 3350] Furosemide [Lasix] 20 mg PO QDAY #20 tablet 01/13/17 Unknown Rx Metoprolol Succinate [Toprol Xl] 50 mg PO DAILY #30 tab.er.24h 01/13/17 Unknown Rx Potassium Chloride [K-Dur] 20 meq PO QDAY #30 tablet 01/13/17 Unknown Rx Pravastatin [Pravachol] 20 mg PO QHS #30 tablet 01/13/17 Unknown Rx Allergies Allergy/AdvReac Type Severity Reaction Status Date / Time No Known Allergies Allergy Verified 09/02/16 15:29 ED Review of Systems ROS: Stated complaint: FELL/HAND INJURY Other details as noted in HPI Comment: Unobtainable due to pts medical conditions (secondary to advanced dementia) ED Past Medical Hx - Past Medical History Previous Medical History?: Yes Hx Hypertension: Yes Hx Heart Attack/AMI: No Hx Congestive Heart Failure: Yes Hx Diabetes: No Hx Deep Vein Thrombosis: Yes Hx Pulmonary Embolism: Yes Hx GERD: No Hx Liver Disease: No Hx Renal Disease: Yes (renal insufficency) Hx Sickle Cell Disease: No Hx Arthritis: No Hx Headaches / Migraines: No Hx Seizures: No Hx Kidney Stones: No Hx Asthma: No Hx COPD: No Hx Tuberculosis: No Hx Dementia: Yes Hx HIV: No Additional medical history: PE and DVT - Surgical History Hx Coronary Stent: No Hx Open Heart Surgery: No Hx Pacemaker: No Hx Internal Defibrillator: No Hx Cholecystectomy: No Hx Appendectomy: No Hx Breast Surgery: No - Social History Smoking Status: Never Smoker Substance Use Type: None - Medications Home Medications: Home Medications Medication Instructions Recorded Confirmed Last Taken Type Finasteride 5 mg PO DAILY 09/12/13 01/10/17 1 Day Ago History Warfarin [Coumadin] 5 mg PO 4XW 09/12/13 01/10/17 1 Day Ago History Sildenafil [Revatio] 20 mg PO TID 07/01/15 01/10/17 1 Day Ago History Allopurinol [Zyloprim] 100 mg PO BID 10/12/16 01/10/17 1 Day Ago History Calcium Citrate/Vitamin D3 [Gnp 1 tab PO 1XW 10/12/16 01/10/17 1 Day Ago History Calcium Citrate-Vit D3 Tab] Cholecalciferol Vit D3 [Vitamin D3] 1,000 unit PO QDAY #0 10/12/16 01/10/17 1 Day Ago History Gabapentin [Neurontin] 300 mg PO BID 10/12/16 01/10/17 1 Day Ago History Polyethylene Glycol 3350 [Miralax 17 gm PO QDAY powd.pack 11/12/16 01/10/17 1 Day Ago Rx 3350] Furosemide [Lasix] 20 mg PO QDAY #20 tablet 01/13/17 Unknown Rx Metoprolol Succinate [Toprol Xl] 50 mg PO DAILY #30 tab.er.24h 01/13/17 Unknown Rx Potassium Chloride [K-Dur] 20 meq PO QDAY #30 tablet 01/13/17 Unknown Rx Pravastatin [Pravachol] 20 mg PO QHS #30 tablet 01/13/17 Unknown Rx ED Physical Exam - General Limitations: Physical Limitation General appearance: alert, in no apparent distress - Head Head exam: Present: atraumatic, normocephalic - Eye Eye exam: Present: normal appearance, PERRL, EOMI. Absent: scleral icterus - ENT ENT exam: Present: mucous membranes moist - Neck Neck exam: Present: normal inspection. Absent: tenderness, meningismus - Respiratory Respiratory exam: Present: normal lung sounds bilaterally. Absent: respiratory distress, chest wall tenderness (there is a small peristernal left of sternal ecchymosis but no crepitus) - Cardiovascular Cardiovascular Exam: Present: regular rate, normal rhythm. Absent: systolic murmur, diastolic murmur, rubs, gallop - GI/Abdominal GI/Abdominal exam: Present: soft, normal bowel sounds. Absent: distended, tenderness, guarding, rebound, rigid - Rectal Rectal exam: Present: deferred - Extremities Exam Extremities exam: Present: other (there is bilateral dorsal edema of the hands. The right is worse than the left with 1+ edema. There is no gross deformity there is ecchymosis of the dorsum of the right hand.) - Back Exam Back exam: Present: normal inspection - Neurological Exam Neurological exam: Present: alert, other (no acute focal deficit found) - Psychiatric Psychiatric exam: Present: normal mood, flat affect - Skin Skin exam: Present: warm, dry, intact, normal color. Absent: rash ED Course Vital Signs 01/28/17 13:02 Temperature 98.5 F Pulse Rate 102 H Respiratory 16 Rate Blood Pressure 145/92 [Left] O2 Sat by Pulse 94 Oximetry ED Medical Decision Making - Lab Data Result diagrams: 01/28/17 13:27 01/28/17 13:27 Laboratory Results - last 24 hr 01/28/17 01/28/17 01/28/17 13:27 13:27 13:27 WBC 8.8 RBC 4.92 Hgb 15.4 H Hct 45.1 MCV 92 MCH 31 MCHC 34 RDW 17.0 H Plt Count 234 Lymph % (Auto) 4.2 L Barnwell % (Auto) 7.3 Eos % (Auto) 0.0 Baso % (Auto) 0.3 Lymph # 0.4 L Barnwell # 0.6 Eos # 0.0 Baso # 0.0 Seg Neutrophils % 88.2 H Seg Neutrophils # 7.8 H PT 28.0 H INR 2.48 H APTT 38.7 H Sodium 141 Potassium 4.2 Chloride 105.6 Carbon Dioxide 18 L Anion Gap 22 BUN 16 Creatinine 1.3 Estimated GFR > 60 BUN/Creatinine Ratio 12 Glucose 114 H Calcium 9.2 Total Bilirubin 0.40 Direct Bilirubin < 0.2 Indirect Bilirubin 0.2 AST 75 H ALT 23 Alkaline Phosphatase 65 Total Protein 6.9 Albumin 3.4 L Albumin/Globulin Ratio 1.0 Critical care attestation.: If time is entered above; I have spent that time in minutes in the direct care of this critically ill patient, excluding procedure time. ED Disposition Clinical Impression: On continuous oral anticoagulation Contusion of hand(s) Qualifiers: Encounter type: initial encounter Laterality: unspecified laterality Qualified Code(s): S60.229A - Contusion of unspecified hand, initial encounter Chest wall contusion Qualifiers: Encounter type: initial encounter Laterality: left Qualified Code(s): S20.212A - Contusion of left front wall of thorax, initial encounter Dementia Qualifiers: Dementia type: unspecified type Dementia behavioral disturbance: with behavioral disturbance Qualified Code(s): F03.91 - Unspecified dementia with behavioral disturbance Disposition: DC-01 TO HOME OR SELFCARE Is pt being admited?: No Does the pt Need Aspirin: No Condition: Stable Instructions: Contusion in Adults (ED), Dementia (ED) Additional Instructions: Return any acute change or problem. Continue current medication. Follow-up with your primary care provider. Time of Disposition: 15:37
[2017-01-28 18:15] VITALS: BP 137/87
== END 2017-01-28 18:40 | disposition home or self-care (01) ==
LOC: ED 12:51
DX: S60.221A Contusion of right hand, initial encounter (principal); S20.212A Contusion of left front wall of thorax, initial encounter; F03.91 Unspecified dementia, unspecified severity, with behavioral disturbance; I10 Essential (primary) hypertension; I50.9 Heart failure, unspecified; I82.409 Acute embolism and thrombosis of unspecified deep veins of unspecified lower extremity; N28.9 Disorder of kidney and ureter, unspecified; Z79.01 Long term (current) use of anticoagulants; F03.90 Unspecified dementia, unspecified severity, without behavioral disturbance, psychotic disturbance, mood disturbance, and anxiety; W22.01XA Walked into wall, initial encounter; Y93.89 Activity, other specified; Y92.89 Other specified places as the place of occurrence of the external cause; Y99.8 Other external cause status
CPT/HCPCS: 36415; 51701; 71010; 80048; 80074; 85025; 85610; 85730; 93005; 93010

== ENCOUNTER 2017-02-01 10:02 | Inpatient (IN) | payer MEDICARE ==
[2017-02-01 11:56] LABS: Hematocrit 44.1 % (35.5-45.6); Hemoglobin 14.3 gm/dl (11.8-15.2); Mean Corpuscular HGB Conc 32 % (32-34); Mean Corpuscular Hemoglobin 30 pg (28-32); Mean Corpuscular Volume 92 fl (84-94); Platelet Count 253 K/mm3 (140-440); Red Blood Count 4.77 M/mm3 (3.65-5.03); Red Cell Distribution Width 17.3 % (13.2-15.2); White Blood Count 4.5 K/mm3 (4.5-11.0)
[2017-02-01] MEDS ORDERED: NACL 0.9% 1000 ML 1,000 ML IV ONE (12:05)
[2017-02-01 12:07] LABS: INR 2.8 (0.87-1.13)
[2017-02-01 12:08] LABS: Partial Thromboplastin Time 50.4 Sec. (24.2-36.6)
[2017-02-01 12:27] LABS: Anion Gap 17 mmol/L; BUN/Creatinine Ratio 11; Blood Urea Nitrogen 14 mg/dL (9-20); Calcium 8.4 mg/dL (8.4-10.2); Carbon Dioxide 22 mmol/L (22-30); Glucose 119 mg/dL (75-100); Potassium 4.1 mmol/L (3.6-5.0); Sodium 143 mmol/L (137-145)
[2017-02-01 12:41] LABS: Creatine Kinase MB 4.7 ng/mL (0.0-4.0)
[2017-02-01 12:42] LABS: Alanine Aminotransferase 41 units/L (7-56); Albumin 2.9 g/dL (3.9-5); Albumin/Globulin Ratio 0.9 %; Alkaline Phosphatase 56 units/L (35-129); Total Protein 6.2 g/dL (6.3-8.2)
[2017-02-01 12:45] LABS: Bilirubin,Direct < 0.2 mg/dL (0-0.2)
[2017-02-01 13:00] LABS: Creatine Kinase 3375 units/L (55-170)
--- NOTE | 2017-02-01 13:11 | XRay Report ---
Single view chest: Compared to 01/28/17. History: Hypertension. Findings: Normal cardiomediastinal silhouette the trachea is midline. Bibasilar infiltrates or atelectasis. Normal CP angles. Impression: Bibasilar infiltrates or atelectasis.
--- NOTE | 2017-02-01 13:13 | XRay Report ---
Left forearm 2 views: Findings: No previous reaction lytic lesion of fracture or soft tissue calcification. Suspected soft tissue swelling. Impression: No bony abnormality. Soft tissue swelling.
--- NOTE | 2017-02-01 13:14 | XRay Report ---
Left humerus 2 views: History: Pain and swelling. Findings No fracture lytic lesion or previous reaction. Soft tissue swelling humerus. Impression: No acute fracture.
--- NOTE | 2017-02-01 14:27 | Emergency Department Report ---
ED General Adult HPI - General Chief complaint: Extremity Problem,Nontraumatic Stated complaint: SWELLING LEFT ARM Time Seen by Provider: 02/01/17 11:35 Source: EMS Mode of arrival: Stretcher Limitations: No Limitations - History of Present Illness Initial comments: I saw this patient on the after he laid on the floor and essentially banged up his hands. He is on oral anticoagulant. He was cleared of significant injury and his daughter wanted to bring him home. He was medically stable and discharged at that time. He did not sustain any fracture. He has a history of an agitated dementia and has done similar things in the past. Today the daughter returns stating the left arm has become swollen over the past few days. She states the patient is taking by mouth. The patient himself can't communicate to some degree and is not complaining of pain. He does have substantial forearm and some upper arm swelling. He's had no apparent difficulty breathing fever or chills. He's been compliant with his medications. -: Gradual, days(s) Location: left, upper extremity Quality: other (swelling) Consistency: constant Improves with: none Worsens with: none Associated Symptoms: denies other symptoms - Related Data Home Medications Medication Instructions Recorded Confirmed Last Taken Finasteride 5 mg PO DAILY 09/12/13 02/01/17 1 Day Ago Warfarin [Coumadin] 5 mg PO 4XW 09/12/13 02/01/17 1 Day Ago Sildenafil [Revatio] 20 mg PO TID 07/01/15 02/01/17 1 Day Ago Allopurinol [Zyloprim] 100 mg PO BID 10/12/16 02/01/17 1 Day Ago Calcium Citrate/Vitamin D3 [Gnp 1 tab PO 1XW 10/12/16 02/01/17 1 Day Ago Calcium Citrate-Vit D3 Tab] Cholecalciferol Vit D3 [Vitamin D3] 1,000 unit PO QDAY #0 10/12/16 02/01/17 1 Day Ago Gabapentin [Neurontin] 300 mg PO BID 10/12/16 02/01/17 1 Day Ago Previous Rx's Medication Instructions Recorded Last Taken Type Polyethylene Glycol 3350 [Miralax 17 gm PO QDAY powd.pack 11/12/16 1 Day Ago Rx 3350] Furosemide [Lasix] 20 mg PO QDAY #20 tablet 01/13/17 Unknown Rx Metoprolol Succinate [Toprol Xl] 50 mg PO DAILY #30 tab.er.24h 01/13/17 Unknown Rx Potassium Chloride [K-Dur] 20 meq PO QDAY #30 tablet 01/13/17 Unknown Rx Pravastatin [Pravachol] 20 mg PO QHS #30 tablet 01/13/17 Unknown Rx Allergies Allergy/AdvReac Type Severity Reaction Status Date / Time No Known Allergies Allergy Verified 09/02/16 15:29 ED Review of Systems ROS: Stated complaint: SWELLING LEFT ARM Other details as noted in HPI Comment: Unobtainable due to pts medical conditions (patient has no specific complaints but severe dementia limits review) ED Past Medical Hx - Past Medical History Hx Hypertension: Yes Hx Heart Attack/AMI: No Hx Congestive Heart Failure: Yes Hx Diabetes: No Hx Deep Vein Thrombosis: Yes Hx Pulmonary Embolism: Yes Hx GERD: No Hx Liver Disease: No Hx Renal Disease: Yes (renal insufficency) Hx Sickle Cell Disease: No Hx Arthritis: No Hx Headaches / Migraines: No Hx Seizures: No Hx Kidney Stones: No Hx Asthma: No Hx COPD: No Hx Tuberculosis: No Hx Dementia: Yes Hx HIV: No Additional medical history: PE and DVT,AFIB - Surgical History Hx Coronary Stent: No Hx Open Heart Surgery: No Hx Pacemaker: No Hx Internal Defibrillator: No Hx Cholecystectomy: No Hx Appendectomy: No Hx Breast Surgery: No - Social History Smoking Status: Unknown if ever smoked Substance Use Type: None - Medications Home Medications: Home Medications Medication Instructions Recorded Confirmed Last Taken Type Finasteride 5 mg PO DAILY 09/12/13 02/01/17 1 Day Ago History Warfarin [Coumadin] 5 mg PO 4XW 09/12/13 02/01/17 1 Day Ago History Sildenafil [Revatio] 20 mg PO TID 07/01/15 02/01/17 1 Day Ago History Allopurinol [Zyloprim] 100 mg PO BID 10/12/16 02/01/17 1 Day Ago History Calcium Citrate/Vitamin D3 [Gnp 1 tab PO 1XW 10/12/16 02/01/17 1 Day Ago History Calcium Citrate-Vit D3 Tab] Cholecalciferol Vit D3 [Vitamin D3] 1,000 unit PO QDAY #0 10/12/16 02/01/17 1 Day Ago History Gabapentin [Neurontin] 300 mg PO BID 10/12/16 02/01/17 1 Day Ago History Polyethylene Glycol 3350 [Miralax 17 gm PO QDAY powd.pack 11/12/16 02/01/17 1 Day Ago Rx 3350] Furosemide [Lasix] 20 mg PO QDAY #20 tablet 01/13/17 02/01/17 Unknown Rx Metoprolol Succinate [Toprol Xl] 50 mg PO DAILY #30 tab.er.24h 01/13/17 Unknown Rx Potassium Chloride [K-Dur] 20 meq PO QDAY #30 tablet 01/13/17 02/01/17 Unknown Rx Pravastatin [Pravachol] 20 mg PO QHS #30 tablet 01/13/17 02/01/17 Unknown Rx ED Physical Exam - General Limitations: Other General appearance: alert, in no apparent distress - Head Head exam: Present: atraumatic, normocephalic - Eye Eye exam: Present: normal appearance, PERRL, EOMI. Absent: scleral icterus - ENT ENT exam: Present: mucous membranes moist - Neck Neck exam: Present: normal inspection. Absent: tenderness, meningismus - Respiratory Respiratory exam: Present: normal lung sounds bilaterally. Absent: respiratory distress - Cardiovascular Cardiovascular Exam: Present: regular rate, normal rhythm. Absent: systolic murmur, diastolic murmur, rubs, gallop - GI/Abdominal GI/Abdominal exam: Present: soft, normal bowel sounds. Absent: distended, tenderness, guarding, rebound, rigid - Rectal Rectal exam: Present: deferred - Extremities Exam Extremities exam: Present: other (there is soft tissue swelling and edema of the left forearm. It is not tense or tight. The compartments are normal. The patient is able to move his arm normally. Radial pulses normal. Capillary refill is good. There is some upper arm edema but it is milder.) - Back Exam Back exam: Present: normal inspection. Absent: CVA tenderness (R), CVA tenderness (L) - Neurological Exam Neurological exam: Present: alert, oriented X3, motor sensory deficit (old right hemiparesis mild) - Psychiatric Psychiatric exam: Present: normal affect, normal mood - Skin Skin exam: Present: warm, dry, intact, normal color. Absent: rash ED Course Vital Signs 02/01/17 11:13 Temperature 98 F Pulse Rate 89 Respiratory 18 Rate Blood Pressure 118/85 O2 Sat by Pulse 97 Oximetry - Reevaluation(s) Reevaluation #1: Patient was given IV fluids. He was found to be in rhabdomyolysis. He will be admitted by Dr. Beavers to the hospital service for further care and evaluation. He was also found to have an SVT in his left cephalic vein despite full anticoagulation. No DVT was found. 02/01/17 14:26 ED Medical Decision Making - Lab Data Result diagrams: 02/01/17 11:29 02/01/17 11:29 Laboratory Results - last 24 hr 02/01/17 02/01/17 02/01/17 11:29 11:29 11:29 WBC 4.5 RBC 4.77 Hgb 14.3 Hct 44.1 MCV 92 MCH 30 MCHC 32 RDW 17.3 H Plt Count 253 PT INR APTT Sodium 143 Potassium 4.1 Chloride 108.0 H Carbon Dioxide 22 Anion Gap 17 BUN 14 Creatinine 1.3 Estimated GFR > 60 BUN/Creatinine Ratio 11 Glucose 119 H Calcium 8.4 Magnesium 2.00 Total Bilirubin 0.60 Direct Bilirubin < 0.2 AST 87 H ALT 41 Alkaline Phosphatase 56 Total Creatine Kinase 3375 H CK-MB (CK-2) 4.7 H CK-MB (CK-2) Rel Index 0.1 NT-Pro-B Natriuret Pep 334.3 Total Protein 6.2 L Albumin 2.9 L Albumin/Globulin Ratio 0.9 02/01/17 11:42 WBC RBC Hgb Hct MCV MCH MCHC RDW Plt Count PT 30.8 H INR 2.80 H APTT 50.4 H Sodium Potassium Chloride Carbon Dioxide Anion Gap BUN Creatinine Estimated GFR BUN/Creatinine Ratio Glucose Calcium Magnesium Total Bilirubin Direct Bilirubin AST ALT Alkaline Phosphatase Total Creatine Kinase CK-MB (CK-2) CK-MB (CK-2) Rel Index NT-Pro-B Natriuret Pep Total Protein Albumin Albumin/Globulin Ratio - Radiology Data Radiology results: report reviewed interpreted by me: X-ray the chest humerus and forearm showed no acute findings Critical care attestation.: If time is entered above; I have spent that time in minutes in the direct care of this critically ill patient, excluding procedure time. ED Disposition Clinical Impression: Rhabdomyolysis Qualifiers: Rhabdomyolysis type: traumatic Encounter type: initial encounter Qualified Code (s): T79.6XXA - Traumatic ischemia of muscle, initial encounter Superficial venous thrombosis of arm Qualifiers: Laterality: left Qualified Code(s): I82.612 - Acute embolism and thrombosis of superficial veins of left upper extremity Dementia Qualifiers: Dementia type: Alzheimer's disease Alzheimer's disease onset: unspecified onset Dementia behavioral disturbance: with behavioral disturbance Qualified Code(s): G30.8 - Other Alzheimer's disease; F02.81 - Dementia in other diseases classified elsewhere with behavioral disturbance; F02.81 - Dementia in other diseases classified elsewhere with behavioral disturbance; F02.81 - Dementia in other diseases classified elsewhere with behavioral disturbance Disposition: -09 OP ADMIT IP TO THIS HOSP Is pt being admited?: Yes Does the pt Need Aspirin: No (anticoagulated) Condition: Stable Referrals: PRIMARY CARE, [Primary Care Provider] - 3-5 Days Time of Disposition: 14:29
--- NOTE | 2017-02-01 14:47 | History and Physical Report ---
History of Present Illness Chief complaint: Not doing well, History of present illness: 76 YO Male with CHF Diastolic Dysfunction, Dementia, HTN, DVT/PE on Anticoagulation, Pulmonary Hypertension, presents to ED for evaluation. Pt unable to provide detailed history. Pt history taken from family members who are at bedside during exam and interview. Pt family states that patient has become increasingly weak and confused over the past 2-3 weeks with worsening symptoms over the past 3 days. Pt is currently unable to conduct ADL's without maximum assistance. Pt family acknowledge subjective fever, weakness, confusion , and decreased interaction, but deny chills, CP, Palpitations, NVD, Syncope, Fall, Trauma, BRBPR, recent ill contacts, productive cough. Pt seen and evaluated in ED and found to have evidence of bilateral pneumonia on CXR, Rhabdomyolysis, and Left arm swelling. Past History Past Medical History: DVT, heart failure, hypertension, pulmonary embolism Past Surgical History: No surgical history Social history: single. denies: smoking, alcohol abuse, prescription drug abuse Family history: hypertension Medications and Allergies Allergies Allergy/AdvReac Type Severity Reaction Status Date / Time No Known Allergies Allergy Verified 09/02/16 15:29 Home Medications Medication Instructions Recorded Confirmed Last Taken Type Finasteride 5 mg PO DAILY 09/12/13 02/01/17 1 Day Ago History Warfarin [Coumadin] 5 mg PO 4XW 09/12/13 02/01/17 1 Day Ago History Sildenafil [Revatio] 20 mg PO TID 07/01/15 02/01/17 1 Day Ago History Allopurinol [Zyloprim] 100 mg PO BID 10/12/16 02/01/17 1 Day Ago History Calcium Citrate/Vitamin D3 [Gnp 1 tab PO 1XW 10/12/16 02/01/17 1 Day Ago History Calcium Citrate-Vit D3 Tab] Cholecalciferol Vit D3 [Vitamin D3] 1,000 unit PO QDAY #0 10/12/16 02/01/17 1 Day Ago History Gabapentin [Neurontin] 300 mg PO BID 10/12/16 02/01/17 1 Day Ago History Polyethylene Glycol 3350 [Miralax 17 gm PO QDAY powd.pack 11/12/16 02/01/17 1 Day Ago Rx 3350] Furosemide [Lasix] 20 mg PO QDAY #20 tablet 10/09/17 10/28/17 Unknown Rx Metoprolol Succinate [Toprol Xl] 50 mg PO DAILY #30 tab.er.24h 01/13/17 Unknown Rx Potassium Chloride [K-Dur] 20 meq PO QDAY #30 tablet 01/13/17 02/01/17 Unknown Rx Pravastatin [Pravachol] 20 mg PO QHS #30 tablet 01/13/17 02/01/17 Unknown Rx Active Meds: Active Medications Sodium Chloride (Nacl 0.9% 1000 Ml) 1,000 mls @ 125 mls/hr IV ONCE ONE Stop: 02/01/17 20:04 Last Admin: 02/01/17 13:39 Dose: 125 mls/hr Review of Systems ROS unobtainable: due to mental status Constitutional: weakness, other (confusion) Exam - Constitutional Vitals: Temp Pulse Resp BP Pulse Ox 98 F 89 18 118/85 97 02/01/17 11:13 02/01/17 11:13 02/01/17 11:13 02/01/17 11:13 02/01/17 11:13 General appearance: Present: mild distress, cachectic, disheveled - EENT Eyes: Present: PERRL ENT: hearing intact, clear oral mucosa - Neck Neck: Present: supple, normal ROM - Respiratory Respiratory: bilateral: diminished - Cardiovascular Heart Sounds: Present: S1 & S2. Absent: rub, click - Extremities Extremities: pulses symmetrical, No edema Extremity abnormal: edema Peripheral Pulses: within normal limits - Abdominal General gastrointestinal: Present: soft, non-tender, non-distended, normal bowel sounds Male genitourinary: Present: normal - Integumentary Integumentary: Present: clear, dry, pale, decreased turgor - Musculoskeletal Musculoskeletal: generalized weakness - Psychiatric Psychiatric: no intact judgment & insight, no memory intact - Neurologic Neurologic: no gait normal Results - Labs CBC & Chem 7: 02/01/17 11:29 02/01/17 11:29 Labs: Abnormal lab results 02/01/17 02/01/17 02/01/17 Range/Units 11:29 11:29 11:29 RDW 17.3 H (13.2-15.2) % PT (12.2-14.9) Sec. INR (0.87-1.13) APTT (24.2-36.6) Sec. Chloride 108.0 H (98-107) mmol/L Glucose 119 H (75-100) mg/dL AST 87 H (5-40) units/L Total Creatine Kinase 3375 H (55-170) units/L CK-MB (CK-2) 4.7 H (0.0-4.0) ng/mL Total Protein 6.2 L (6.3-8.2) g/dL Albumin 2.9 L (3.9-5) g/dL 02/01/17 Range/Units 11:42 RDW (13.2-15.2) % PT 30.8 H (12.2-14.9) Sec. INR 2.80 H (0.87-1.13) APTT 50.4 H (24.2-36.6) Sec. Chloride (98-107) mmol/L Glucose (75-100) mg/dL AST (5-40) units/L Total Creatine Kinase (55-170) units/L CK-MB (CK-2) (0.0-4.0) ng/mL Total Protein (6.3-8.2) g/dL Albumin (3.9-5) g/dL Assessment and Plan - Patient Problems (1) Pneumonia Current Visit: Yes Status: Acute Qualifiers: Pneumonia type: due to unspecified organism Aspiration pneumonia type: A Laterality: bilateral Lung location: lower lobe of lung Qualified Code(s): J18.9 - Pneumonia, unspecified organism Plan to address problem: Pneumonia protocol: IV abx, supplemental oxygen, nebs, aspiration precautions, incentive spirometry, supportive care, NIPPV as clinically indicated, blood cultures (2) Rhabdomyolysis Current Visit: Yes Status: Acute Qualifiers: Rhabdomyolysis type: R Encounter type: E Plan to address problem: IVF resuscitation therapy, monitor uop q shift, serial ck level, will initiate bicarb therapy to alkalinize urine if decrease uop or serially increased CK level. (3) HTN (hypertension) Current Visit: Yes Status: Acute Qualifiers: Hypertension type: H Plan to address problem: Monitor bp q shift, low sodium diet, continue medical management (4) Encephalopathy Current Visit: Yes Status: Acute Plan to address problem: CT Head, Neuro checks, treat pneumonia, supportive care. (5) Gout Current Visit: Yes Status: Acute Qualifiers: Gout site: G Gout etiology: G Encounter type: E Chronicity: C Laterality: L Presence of tophus: P Plan to address problem: allupurinol, ivf, low protein diet, (6) Pulmonary embolism Current Visit: Yes Status: Chronic Qualifiers: Pulmonary embolism type: P Chronicity: C Acute cor pulmonale presence: A Plan to address problem: Resume anticoagulation, INR therapeutic at this time. (7) DVT prophylaxis Current Visit: Yes Status: Acute
[2017-02-01] MEDS ORDERED: TYLENOL PO PRN (15:04)
[2017-02-01] MEDS ORDERED: PROVENTIL IH PRN (15:04)
[2017-02-01] MEDS ORDERED: MILK OF MAGNESIA PO PRN (15:04)
[2017-02-01] MEDS ORDERED: ZOFRAN IV PRN (15:04)
[2017-02-01] MEDS: ZITHROMAX 500 MG in NACL 0.9% 250ML 250 ML IV SCH (16:35)
--- NOTE | 2017-02-01 18:13 | Cat Scan Report ---
FINAL REPORT EXAM: CT HEAD/BRAIN WO CON HISTORY: confusion TECHNIQUE: CT examination of the head without IV contrast PRIORS: 11/09/2016 FINDINGS: No acute air-fluid level visualized in the included air-filled sinuses. Bone windows demonstrate no acute fracture. There is ventricular and sulcal prominence compatible with global cerebrocortical atrophy. Low attenuation regions in the cerebral white matter, while nonspecific, are present and usually attributed to chronic ischemic gliosis. It can occur secondary to the normal aging process, hypertension, or arterial sclerotic vascular disease. The differential includes demyelination in the appropriate clinical setting. The brain contains no mass, mass effect, hemorrhage, or acute infarct. There is no extra-axial intracranial bleed or brain bleed. There is no midline shift. IMPRESSION: No acute CVA, intracranial bleed, or brain mass
[2017-02-01] MEDS ORDERED: NON-FORMULARY (Pravastatin 20 MG) PO SCH (22:00)
[2017-02-02] MEDS: ROCEPHIN/NS 1 GM/50 ML 1 GM/50 ML BAG IV SCH ×2 (02:04→16:34)
[2017-02-02] MEDS: ZOCOR PO SCH ×2 (02:05→21:36)
[2017-02-02] MEDS: NEURONTIN PO SCH ×3 (02:06→21:36)
[2017-02-02] MEDS: REVATIO PO SCH ×4 (02:06→20:36)
[2017-02-02] MEDS: CITRACAL D 315MG-250 UNITS PO SCH ×2 (02:06→16:34)
[2017-02-02] MEDS: ZYLOPRIM PO SCH ×3 (02:07→21:37)
[2017-02-02 05:56] LABS: Basophils % (Auto) 0.8 % (0.0-1.8); Eosinophils % (Auto) 3.2 % (0.0-4.3); Hematocrit 41.4 % (35.5-45.6); Hemoglobin 13.8 gm/dl (11.8-15.2); Mean Corpuscular HGB Conc 34 % (32-34); Mean Corpuscular Hemoglobin 31 pg (28-32); Mean Corpuscular Volume 91 fl (84-94); Platelet Count 245 K/mm3 (140-440); Red Blood Count 4.53 M/mm3 (3.65-5.03); Red Cell Distribution Width 16.6 % (13.2-15.2); White Blood Count 4.3 K/mm3 (4.5-11.0)
[2017-02-02] MEDS ORDERED: FINASTERIDE 5 MG PO SCH (10:00)
[2017-02-02] MEDS: MIRALAX 3350 PO SCH (10:09)
[2017-02-02] MEDS: K-DUR PO SCH (10:10)
[2017-02-02] MEDS: PROSCAR PO SCH (10:10)
[2017-02-02] MEDS: TOPROL XL PO SCH (10:10)
[2017-02-02] MEDS: VITAMIN D3 PO SCH (10:10)
[2017-02-02] MEDS: LASIX PO SCH (10:11)
[2017-02-02] MEDS ORDERED: PNEUMOVAX 23 IM ONE (12:00)
[2017-02-02] MEDS ORDERED: Fluarix Quad 2017-2018(36 MOS+ IM ONE (12:00)
[2017-02-02] MEDS: NACL 0.9% 1000 ML 1,000 ML IV SCH ×2 (12:04→22:33)
--- NOTE | 2017-02-02 13:29 | Progress Note ---
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 Resume Coumadin, closely monitor INR.goal 2-3 --Swelling /SVT, left midforearm superficial venous thrombosis, patient is already on Coumadin, elevated bili and --Hypertension; moderate control, continue current antihypertensives --History of gout; continue the patient on an supportive care --DC planning by case management possibly home with home health and medically stable --Full CODE Monitor the patient and adjust management as needed History Interval history: Patient seen and examined in his room Daughter at the bedside, concerned about the left upper extremity swelling No new complaints vital signs reviewed stable Hospitalist Physical - Constitutional Vitals: Temp Pulse Resp BP Pulse Ox 97.7 F 86 20 110/75 94 02/02/17 11:29 02/02/17 11:29 02/02/17 11:29 02/02/17 11:29 02/02/17 11:29 General appearance: Present: no acute distress, cachectic - EENT Eyes: Present: PERRL, EOM intact - Neck Neck: Present: supple, normal ROM - Respiratory Respiratory effort: normal Respiratory: bilateral: diminished, negative: rales, rhonchi, wheezing - Cardiovascular Rhythm: regular Heart Sounds: Present: S1 & S2 - Extremities Extremities: Full ROM, abnormal (left upper extremity edema and swelling) Extremity abnormal: edema - Abdominal General gastrointestinal: soft, non-tender, non-distended, normal bowel sounds - Integumentary Integumentary: Present: clear, warm - Psychiatric Psychiatric: appropriate mood/affect, other (confused at times) - Neurologic Neurologic: moves all extremities Results - Labs CBC & Chem 7: 02/02/17 05:30 02/01/17 11:29 Labs: Laboratory Last Values WBC 4.3 K/mm3 (4.5-11.0) L 02/02/17 05:30 RBC 4.53 M/mm3 (3.65-5.03) 02/02/17 05:30 Hgb 13.8 gm/dl (11.8-15.2) 02/02/17 05:30 Hct 41.4 % (35.5-45.6) 02/02/17 05:30 MCV 91 fl (84-94) 02/02/17 05:30 MCH 31 pg (28-32) 02/02/17 05:30 MCHC 34 % (32-34) 02/02/17 05:30 RDW 16.6 % (13.2-15.2) H 02/02/17 05:30 Plt Count 245 K/mm3 (140-440) 02/02/17 05:30 Lymph % (Auto) 23.0 % (13.4-35.0) 02/02/17 05:30 Burnett % (Auto) 11.0 % (0.0-7.3) H 02/02/17 05:30 Eos % (Auto) 3.2 % (0.0-4.3) 02/02/17 05:30 Baso % (Auto) 0.8 % (0.0-1.8) 02/02/17 05:30 Lymph # 1.0 K/mm3 (1.2-5.4) L 02/02/17 05:30 [place]ett # 0.5 K/mm3 (0.0-0.8) 02/02/17 05:30 Eos # 0.1 K/mm3 (0.0-0.4) 02/02/17 05:30 Baso # 0.0 K/mm3 (0.0-0.1) 02/02/17 05:30 Seg Neutrophils % 62.0 % (40.0-70.0) 02/02/17 05:30 Seg Neutrophils # 2.7 K/mm3 (1.8-7.7) 02/02/17 05:30 PT 30.8 Sec. (12.2-14.9) H 02/01/17 11:42 INR 2.80 (0.87-1.13) H 02/01/17 11:42 APTT 50.4 Sec. (24.2-36.6) H 02/01/17 11:42 Sodium 143 mmol/L (137-145) 02/01/17 11:29 Potassium 4.1 mmol/L (3.6-5.0) 02/01/17 11:29 Chloride 108.0 mmol/L (98-107) H 02/01/17 11:29 Carbon Dioxide 22 mmol/L (22-30) 02/01/17 11:29 Anion Gap 17 mmol/L 02/01/17 11:29 BUN 14 mg/dL (9-20) 02/01/17 11:29 Creatinine 1.3 mg/dL (0.8-1.5) 02/01/17 11:29 Estimated GFR > 60 ml/min 02/01/17 11:29 BUN/Creatinine Ratio 11 % 02/01/17 11:29 Glucose 119 mg/dL (75-100) H 02/01/17 11:29 Calcium 8.4 mg/dL (8.4-10.2) 02/01/17 11:29 Magnesium 2.00 mg/dL (1.7-2.3) 02/01/17 11:29 Total Bilirubin 0.60 mg/dL (0.1-1.2) 02/01/17 11:29 Direct Bilirubin < 0.2 mg/dL (0-0.2) 02/01/17 11:29 AST 87 units/L (5-40) H 02/01/17 11:29 ALT 41 units/L (7-56) 02/01/17 11:29 Alkaline Phosphatase 56 units/L (35-129) 02/01/17 11:29 Total Creatine Kinase 3375 units/L (55-170) H 02/01/17 11:29 CK-MB (CK-2) 4.7 ng/mL (0.0-4.0) H 02/01/17 11:29 CK-MB (CK-2) Rel Index 0.1 (0-4) 02/01/17 11:29 NT-Pro-B Natriuret Pep 334.3 pg/mL (0-900) 02/01/17 11:29 Total Protein 6.2 g/dL (6.3-8.2) L 02/01/17 11:29 Albumin 2.9 g/dL (3.9-5) L 02/01/17 11:29 Albumin/Globulin Ratio 0.9 % 02/01/17 11:29
[2017-02-02] MEDS ORDERED: COUMADIN NO DOSE TODAY PO ONE (17:00)
[2017-02-02] MEDS: ZITHROMAX 500 MG in NACL 0.9% 250ML 250 ML IV SCH (17:16)
[2017-02-02 20:43] LABS: Bacteria,Urine 2+ /HPF (Negative); Bilirubin,Urine NEG (Negative); Blood,Urine NEG (Negative); Ketones,Urine NEG (Negative); Leukocyte Esterase,Urine LG (Negative); Mucus,Urine FEW /HPF; Nitrite,Urine NEG (Negative); Protein,Urine <15 mg/dL mg/dL (Negative)
[2017-02-03 05:54] LABS: Basophils % (Auto) 1.1 % (0.0-1.8); Eosinophils % (Auto) 4.1 % (0.0-4.3); Hemoglobin 13.5 gm/dl (11.8-15.2); Mean Corpuscular HGB Conc 32 % (32-34); Mean Corpuscular Hemoglobin 30 pg (28-32); Mean Corpuscular Volume 94 fl (84-94); Platelet Count 244 K/mm3 (140-440); Red Blood Count 4.46 M/mm3 (3.65-5.03); White Blood Count 4.2 K/mm3 (4.5-11.0)
--- NOTE | 2017-02-03 07:20 | Vascular Lab Report ---
LEFT UPPER EXTREMITY VENOUS DUPLEX: REASON FOR EXAM: Pain and swelling of the left upper extremity COMMENTS ON THE LEFT: All arm veins visualized are freely compressible without evidence of internal echogenicity. The subclavian and internal jugular veins are free of thrombus. Flow is spontaneous and phasic throughout. Superficial thrombophlebitis in the cephalic vein in the forearm COMMENTS ON THE RIGHT: The subclavian and internal jugular veins are free of thrombus. IMPRESSION: No evidence of acute or chronic deep venous thrombosis in the left upper extremity. Left upper extremity superficial thrombophlebitis
[2017-02-03 08:23] LABS: INR 2.48 (0.87-1.13)
[2017-02-03] MEDS: REVATIO PO SCH ×3 (08:50→21:26)
[2017-02-03] MEDS: NACL 0.9% 1000 ML 1,000 ML IV SCH (08:58)
[2017-02-03] MEDS: NEURONTIN PO SCH ×2 (09:02→21:26)
[2017-02-03] MEDS: VITAMIN D3 PO SCH (09:02)
[2017-02-03] MEDS: PROSCAR PO SCH (09:02)
[2017-02-03] MEDS: ZYLOPRIM PO SCH ×2 (09:02→21:25)
[2017-02-03] MEDS: LASIX PO SCH (09:03)
[2017-02-03] MEDS: K-DUR PO SCH (09:05)
[2017-02-03] MEDS: MIRALAX 3350 PO SCH (09:06)
[2017-02-03] MEDS: TOPROL XL PO SCH (09:07)
--- NOTE | 2017-02-03 12:03 | Query-Altered Level of Consc. ---
Stephen Fowler Date:____02/03/2017 Rosa/ELIAZAR:__Racheal Phone#:__[phone] Exercise your independent professional judgment when responding to this query. Questions asked do not imply a particular answer is desired or expected. We greatly appreciate your clarification on this issue. Clinical Documentation States: 76 Year old female was admitted on 02/01/2017 for subjective fever, weakness, confusion, and decreased interaction. The IM H&P note states "(4) Encephalopathy Current Visit: Yes Status: Acute Plan to address problem: CT Head, Neuro checks, treat pneumonia, supportive care." Please provide an appropriate diagnosis clarifying the Etiology and Acuity of this clinical scenario: [ ] Metabolic Encephalopathy [ ] Toxic Encephalopathy [x ] Toxic - Metabolic Encephalopathy [ ] Septic Encephalopathy with Sepsis [ ] Septic Encephalopathy without Sepsis [ ] Acute Hepatic Encephalopathy [ ] Subacute Hepatic Encephalopathy [ ] Encephalopathy [ ] Other: [ ] Unable To Determine [ ]Comment/Explanation: Present on Admission: [x ] Yes (Y) [ ] Clinically undeterminable (W) [ ] No (N) Please also document response in your Progress Notes and/or Discharge Summary and indicate if the condition was present on admission. DANNY
--- NOTE | 2017-02-03 12:05 | Query- Pneumonia Documented ---
Stephen Fowler Date:__02/03/2017 Motorcycle Maker/CDS:___Racheal Phone#:__[phone] Exercise your independent professional judgment when responding to query. Questions asked do not imply a particular answer is desired or expected. We greatly appreciate your clarification on this issue. Clinical Documentation States: 76 Year old female was admitted on 02/01/2017 for subjective fever, weakness, confusion, and decreased interaction. The IM H&P note states "- Patient Problems (1) Pneumonia Current Visit: Yes Status: Acute Qualifiers: Pneumonia type: due to unspecified organism Aspiration pneumonia type: A Laterality: bilateral Lung location: lower lobe of lung Qualified Code(s): J18.9 - Pneumonia, unspecified organism Plan to address problem: Pneumonia protocol: IV abx, supplemental oxygen, nebs, aspiration precautions, incentive spirometry, supportive care, NIPPV as clinically indicated, blood cultures." Please further specify known or suspected Etiology: [ ] Aspiration Pneumonia [ ] Gram Negative Pneumonia [ ] Gram Positive Pneumonia [ ] Pseudomonas Pneumonia [ ] MRSA - related Pneumonia [ ] Viral Pneumonia [ ] Candidal Pneumonia [x ] Other:possible aspiration pneumonia [ ] Unable to determine Present on Admission: [x ] Yes (Y) [ ] Clinically undeterminable (W) [ ] No (N) Please also document response in your Progress Notes and/or Discharge Summary and indicate if the condition was present on admission. DANNY
[2017-02-03] MEDS ORDERED: COUMADIN PO SCH ×2 (17:00)
[2017-02-03] MEDS: ZITHROMAX 500 MG in NACL 0.9% 250ML 250 ML IV SCH (19:11)
[2017-02-03] MEDS: ROCEPHIN/NS 1 GM/50 ML 1 GM/50 ML BAG IV SCH ×2 (19:12→21:42)
--- NOTE | 2017-02-03 20:03 | Progress Note ---
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 Resume Coumadin, closely monitor INR.goal 2-3 --Swelling /SVT, left mid forearm superficial venous thrombosis, patient is already on Coumadin, elevated bili and --Hypertension; moderate control, continue current antihypertensives --History of gout; continue the patient on an supportive care --DC planning by case management possibly home with home health and medically stable --Full CODE Monitor the patient and adjust management as needed History Interval history: Patient seen and evaluated medical records reviewed Patient feels better, left upper extremity swelling slightly improved No new complaints Vital signs reviewed Alert awake responding to simple questions not in acute distress Hospitalist Physical - Constitutional Vitals: Temp Pulse Resp BP Pulse Ox 98.5 F 84 20 106/63 94 02/03/17 14:58 02/03/17 14:58 02/03/17 14:58 02/03/17 14:58 02/03/17 14:58 General appearance: Present: no acute distress, cachectic - EENT Eyes: Present: PERRL, EOM intact - Neck Neck: Present: supple, normal ROM - Respiratory Respiratory effort: normal Respiratory: bilateral: rhonchi, negative: rales, wheezing - Cardiovascular Rhythm: regular Heart Sounds: Present: S1 & S2 - Extremities Extremities: no ischemia, abnormal (mild swelling left upper extremity) - Abdominal General gastrointestinal: soft, non-tender, non-distended, normal bowel sounds - Integumentary Integumentary: Present: clear, warm - Psychiatric Psychiatric: appropriate mood/affect, other (confused at times) - Neurologic Neurologic: moves all extremities Results - Labs CBC & Chem 7: 02/03/17 05:29 02/01/17 11:29 Labs: Laboratory Last Values WBC 4.2 K/mm3 (4.5-11.0) L 02/03/17 05:29 RBC 4.46 M/mm3 (3.65-5.03) 02/03/17 05:29 Hgb 13.5 gm/dl (11.8-15.2) 02/03/17 05:29 Hct 42.0 % (35.5-45.6) 02/03/17 05:29 MCV 94 fl (84-94) 02/03/17 05:29 MCH 30 pg (28-32) 02/03/17 05:29 MCHC 32 % (32-34) 02/03/17 05:29 RDW 17.0 % (13.2-15.2) H 02/03/17 05:29 Plt Count 244 K/mm3 (140-440) 02/03/17 05:29 Lymph % (Auto) 30.9 % (13.4-35.0) 02/03/17 05:29 Howard % (Auto) 11.3 % (0.0-7.3) H 02/03/17 05:29 Eos % (Auto) 4.1 % (0.0-4.3) 02/03/17 05:29 Baso % (Auto) 1.1 % (0.0-1.8) 02/03/17 05:29 Lymph # 1.3 K/mm3 (1.2-5.4) 02/03/17 05:29 Howard # 0.5 K/mm3 (0.0-0.8) 02/03/17 05:29 Eos # 0.2 K/mm3 (0.0-0.4) 02/03/17 05:29 Baso # 0.0 K/mm3 (0.0-0.1) 02/03/17 05:29 Seg Neutrophils % 52.6 % (40.0-70.0) 02/03/17 05:29 Seg Neutrophils # 2.2 K/mm3 (1.8-7.7) 02/03/17 05:29 PT 28.0 Sec. (12.2-14.9) H 02/03/17 07:53 INR 2.48 (0.87-1.13) H 02/03/17 07:53 APTT 50.4 Sec. (24.2-36.6) H 02/01/17 11:42 Sodium 143 mmol/L (137-145) 02/01/17 11:29 Potassium 4.1 mmol/L (3.6-5.0) 02/01/17 11:29 Chloride 108.0 mmol/L (98-107) H 02/01/17 11:29 Carbon Dioxide 22 mmol/L (22-30) 02/01/17 11:29 Anion Gap 17 mmol/L 02/01/17 11:29 BUN 14 mg/dL (9-20) 02/01/17 11:29 Creatinine 1.3 mg/dL (0.8-1.5) 02/01/17 11:29 Estimated GFR > 60 ml/min 02/01/17 11:29 BUN/Creatinine Ratio 11 % 02/01/17 11:29 Glucose 119 mg/dL (75-100) H 02/01/17 11:29 Calcium 8.4 mg/dL (8.4-10.2) 02/01/17 11:29 Magnesium 2.00 mg/dL (1.7-2.3) 02/01/17 11:29 Total Bilirubin 0.60 mg/dL (0.1-1.2) 02/01/17 11:29 Direct Bilirubin < 0.2 mg/dL (0-0.2) 02/01/17 11:29 AST 87 units/L (5-40) H 02/01/17 11:29 ALT 41 units/L (7-56) 02/01/17 11:29 Alkaline Phosphatase 56 units/L (35-129) 02/01/17 11:29 Total Creatine Kinase 3375 units/L (55-170) H 02/01/17 11:29 CK-MB (CK-2) 4.7 ng/mL (0.0-4.0) H 02/01/17 11:29 CK-MB (CK-2) Rel Index 0.1 (0-4) 02/01/17 11:29 NT-Pro-B Natriuret Pep 334.3 pg/mL (0-900) 02/01/17 11:29 Total Protein 6.2 g/dL (6.3-8.2) L 02/01/17 11:29 Albumin 2.9 g/dL (3.9-5) L 02/01/17 11:29 Albumin/Globulin Ratio 0.9 % 02/01/17 11:29 Urine Color Yellow (Yellow) 02/02/17 20:20 Urine Turbidity Clear (Clear) 02/02/17 20:20 Urine pH 5.0 (5.0-7.0) 02/02/17 20:20 Ur Specific [place] 1.017 (1.003-1.030) 02/02/17 20:20 Urine Protein <15 mg/dl mg/dL (Negative) 02/02/17 20:20 Urine Glucose (UA) Neg mg/dL (Negative) 02/02/17 20:20 Urine Ketones Neg mg/dL (Negative) 02/02/17 20:20 Urine Blood Neg (Negative) 02/02/17 20:20 Urine Nitrite Neg (Negative) 02/02/17 20:20 Urine Bilirubin Neg (Negative) 02/02/17 20:20 Urine Urobilinogen 2.0 mg/dL (<2.0) 02/02/17 20:20 Ur Leukocyte Esterase Lg (Negative) 02/02/17 20:20 Urine WBC (Auto) 78.0 /HPF (0.0-6.0) H 02/02/17 20:20 Urine RBC (Auto) 1.0 /HPF (0.0-6.0) 02/02/17 20:20 Urine Bacteria (Auto) 2+ /HPF (Negative) 02/02/17 20:20 Urine Mucus Few /HPF 02/02/17 20:20
[2017-02-03] MEDS: ZOCOR PO SCH (21:25)
[2017-02-04] MEDS: NACL 0.9% 1000 ML 1,000 ML IV SCH (01:10)
[2017-02-04 07:40] LABS: INR 2.03 (0.87-1.13)
[2017-02-04 07:40] LABS: Anion Gap 18 mmol/L; BUN/Creatinine Ratio 12; Blood Urea Nitrogen 12 mg/dL (9-20); Carbon Dioxide 18 mmol/L (22-30); Chloride 109.4 mmol/L (98-107); Creatine Kinase 715 units/L (55-170); Glucose 97 mg/dL (75-100); Potassium 3.9 mmol/L (3.6-5.0); Sodium 141 mmol/L (137-145)
[2017-02-04] MEDS: REVATIO PO SCH ×3 (08:49→21:37)
--- NOTE | 2017-02-04 09:59 | Discharge Summary ---
Providers - Providers Date of Admission: 02/01/17 16:15 Date of discharge: 02/04/17 Attending physician: SAMUEL FLANNERY 02/02/17 16:20 Consult to Wound/ET Nurse [CONS] Routine Reason For Exam: wound eval Primary care physician: [employer]RATOR Hospitalization Condition: Stable Disposition: DC/TX-06 HOME UNDER HOME [facility] Core Measure Documentation - Palliative Care Palliative Care/ Comfort Measures: Not Applicable - Core Measures Any of the following diagnoses?: none Exam - Constitutional Vitals: Temp Pulse Resp BP Pulse Ox 98.1 F 98 H 22 156/92 95 02/04/17 07:34 02/04/17 07:34 02/04/17 07:34 02/04/17 07:34 02/04/17 08:51 General appearance: Present: no acute distress, well-nourished - EENT Eyes: Present: PERRL, EOM intact - Neck Neck: Present: supple, normal ROM - Respiratory Respiratory effort: normal Respiratory: bilateral: diminished, negative: rales, rhonchi, wheezing - Cardiovascular Rhythm: regular Heart Sounds: Present: S1 & S2 - Extremities Extremities: no ischemia, No edema, abnormal (mild swelling LUE) - Abdominal General gastrointestinal: Present: soft, non-tender, non-distended, normal bowel sounds - Integumentary Integumentary: Present: clear, warm - Musculoskeletal Musculoskeletal: generalized weakness - Psychiatric Psychiatric: appropriate mood/affect, other (confused at times) - Neurologic Neurologic: other (minimally communicative) Plan Activity: advance as tolerated, fall precautions Diet: other (cardiac diet) Additional Instructions: check INR in 3-4 days at PMD office Follow up with: PRIMARY CARE, [Primary Care Provider] - 3-5 Days Forms: Warfarin Discharge Instruction Prescriptions: Levofloxacin [Levaquin] 250 mg PO QDAY #7 tablet
[2017-02-04] MEDS ORDERED: ZITHROMAX PO SCH (10:00)
[2017-02-04] MEDS: TOPROL XL PO SCH (10:07)
[2017-02-04] MEDS: ZYLOPRIM PO SCH ×2 (10:08→21:37)
[2017-02-04] MEDS: NEURONTIN PO SCH ×2 (10:09→21:37)
[2017-02-04] MEDS: LASIX PO SCH (10:09)
[2017-02-04] MEDS: PROSCAR PO SCH (10:09)
[2017-02-04] MEDS: VITAMIN D3 PO SCH (10:09)
[2017-02-04] MEDS: MIRALAX 3350 PO SCH (10:13)
[2017-02-04] MEDS: K-DUR PO SCH (10:13)
[2017-02-04] MEDS ORDERED: COUMADIN PO SCH (17:00)
[2017-02-04] MEDS: ROCEPHIN/NS 1 GM/50 ML 1 GM/50 ML BAG IV SCH (17:14)
[2017-02-04] MEDS: ZOCOR PO SCH (21:37)
[2017-02-04 22:47] VITALS: BP 119/58
== END 2017-02-04 23:09 | disposition home health service (06) | DRG 70 ==
LOC: ED 10:02 → 3A 16:15
PROVIDERS: ADMIT Internal Medicine; ATTEND Internal Medicine
PROC: 3E033GC Introduction of Other Therapeutic Substance into Peripheral Vein, Percutaneous Approach (ICD-10-PCS; principal; 2017-02-01)
DX: G93.40 Encephalopathy, unspecified (principal); J18.9 Pneumonia, unspecified organism; I82.612 Acute embolism and thrombosis of superficial veins of left upper extremity; M62.82 Rhabdomyolysis; I27.82 Chronic pulmonary embolism; M1A.9XX0 Chronic gout, unspecified, without tophus (tophi); I11.0 Hypertensive heart disease with heart failure; I50.9 Heart failure, unspecified; F03.90 Unspecified dementia, unspecified severity, without behavioral disturbance, psychotic disturbance, mood disturbance, and anxiety; I27.20 Pulmonary hypertension, unspecified; Z82.49 Family history of ischemic heart disease and other diseases of the circulatory system
CPT/HCPCS: 36415; 70450; 71010; 80048; 80074; 81001; 82550; 82553; 82962; 83735; 83880; 85025; 85027; 85610; 85730; 90686; 90732; J0456; J0696; J7030; J7050